=== PATIENT | male | born 1955 | race Caucasian/White ===

== ENCOUNTER → 2017-04-26 14:36 | Outpatient (CLI) | payer BC, SELFPAY ==
[2017-04-26 16:39] LABS: Anion Gap 8 (5-15); BUN 16 mg/dL (7-18); BUN/Creat Ratio 17.1 RATIO (10-20); Calcium,Total 8.9 mg/dL (8.5-10.1); Chloride 105 mmol/L (98-107); Cholesterol 183 mg/dL (200); Creatinine, Serum 0.94 mg/dL (0.70-1.30); EST Glomerular Filtration Rate 86 mL/min (>60); Est Glom Filt Rate - Afr Amer 104 mL/min (>60); Glucose 86 mg/dL (74-106); High Density Lipoprotein 52 mg/dL; PSA,Total - Annual Screen 6.43 ng/mL (0.00-4.00); Potassium 3.9 mmol/L (3.5-5.1); Sodium Level 141 mmol/L (136-145); Triglycerides 82 mg/dL; Very Low Density Lipoprotein 16 mg/dL (5-40)
[2017-04-27 09:36] LABS: Vitamin D,25 Hydroxy 25.9 ng/mL (29.95-100.01)
== END ==
PROVIDERS: Family Provider Family Medicine; PCP Family Medicine; Visit Provider Family Medicine
DX: Z00.00 Encounter for general adult medical examination without abnormal findings (principal)
CPT/HCPCS: 36415; 80048; 80061; 82306; 84153; G0103

== ENCOUNTER → 2017-07-11 12:15 | Outpatient (CLI) | payer BC, SELFPAY ==
--- NOTE | 2017-07-11 12:15 | DT_ITS ---
This patient was seen during an EMR downtime July 09, 2017 - July 16, 2017. This patient may have a combination of paper and electronic documentation or all paper documentation. All documentation is viewable within the e-chart portion of [facility] for each patient visit.
[2017-07-15 15:32] LABS: PSA,Total - Annual Screen 6.65 ng/mL (0.00-4.00)
[2017-07-16 12:43] LABS: Vitamin D,25 Hydroxy 31.3 ng/mL (29.95-100.01)
== END ==
PROVIDERS: Family Medicine; Family Provider Family Medicine; PCP Family Medicine; Visit Provider Family Medicine
DX: R97.20 Elevated prostate specific antigen [PSA] (principal); E55.9 Vitamin D deficiency, unspecified; Z12.5 Encounter for screening for malignant neoplasm of prostate
CPT/HCPCS: 36415; 82306; 84153; G0103

== ENCOUNTER → 2017-09-24 16:23 | Outpatient (CLI) | payer BC, SELFPAY ==
--- NOTE | 2017-09-24 08:00 | PROSBIL_PTH ---
PATIENT: GILA DOSHI LOC: [facility] U#:[id number] AGE/SX: 69/M ROOM: RE09/24/[address]: Dr. Kade Mills MD : 1955 BED: DIS: SPEC #: [id number] RECD: 09/24/17 10:35 STATUS: GREGORIO HARJINDER #: [id number] ERICKA: 09/24/17 08:[address]: Kade Mills DEPT: SURGICAL PATHOLOGY RECD BY: Trent Mobley ENTERED: 09/25/17 10:36 SP TYPE: PROST BX NGOZI DR: Dr. Marquis Boyle MD Tissues: A - PROSTATE RIGHT B - PROSTATE RIGHT C - PROSTATE RIGHT D - PROSTATE LEFT E - PROSTATE LEFT F - PROSTATE LEFT Procedures: PROSTATE BX HEADER OPERATION: Prostate biopsy PRE-OP DIAGNOSIS: R97.20 TISSUE SUBMITTED: A - Right apex, B - Right mid, C - Right base, D - Left apex, E - Left mid, F - Left base MICROSCOPIC DIAGNOSIS A. Right prostate, apex, core biopsy: Prostatic adenocarcinoma: [place] grade: 4+3=7 Number of cores involved: 1 out of 1 Proportion of tissue involved: ~60% Perineural invasion: Present. Greatest tumor length: 0.8 cm Focal high-grade prostatic intraepithelial neoplasia (HGPIN). B. Right prostate, mid, core biopsy: Prostatic adenocarcinoma: [place] grade: 3+4=7 Number of cores involved: 2 out of 2 Proportion of tissue involved: 80% Perineural invasion: Present. Greatest tumor length: 0.9 cm Focal high-grade prostatic intraepithelial neoplasia (HGPIN). C. Right prostate, base, core biopsy: Prostatic adenocarcinoma: Masood grade: 4+5=9 Number of cores involved: 2 out of 2 Proportion of tissue involved: 100% Perineural invasion: Present. Greatest tumor length: 1.3 cm Focal high-grade prostatic intraepithelial neoplasia (HGPIN). D. Left prostate, apex, core biopsy: Prostatic tissue, negative for malignancy. E. Left prostate, mid, core biopsy: Prostatic adenocarcinoma: [place] grade: 4+3=7 Number of cores involved: 2 out of 2 Proportion of tissue involved: ~80% Perineural invasion: Present, frequent. Greatest tumor length: 0.8 cm Focal high-grade prostatic intraepithelial neoplasia (HGPIN). F. Left prostate, base, core biopsy: Prostatic adenocarcinoma: [place] grade: 4+3=7 Number of cores involved: 2 out of 2 Proportion of tissue involved: ~50% Perineural invasion: Present. Greatest tumor length: 0.8 cm Focal high-grade prostatic intraepithelial neoplasia (HGPIN). Chronic inflammation. SJ:mino 09/26/17 COMMENT Case has been reviewed in consultation with Dr. Perez who concurs with the above diagnosis. IDC:AM MICROSCOPIC DESCRIPTION Slides are reviewed. GROSS DESCRIPTION A - Received is one container designated prostate, right apex. The specimen consists of one elongated fragment of light munguia-white soft tissue measuring 1.7 cm in length and 0.1 cm in diameter. The specimen is totally submitted in one cassette. B - Received is one container designated prostate, right mid. The specimen consists of two elongated fragments of light munguia-white soft tissue each measuring 1.3 cm in length and 0.1 cm in diameter. The specimen is totally submitted in one cassette. C - Received is one container designated prostate, right base. The specimen consists of two elongated fragments of light munguia-white soft tissue each measuring 1.5 cm in length and 0.1 cm in diameter. The specimen is totally submitted in one cassette. D - Received is one container designated prostate, left apex. The specimen consists of one elongated fragment of light munguia-white soft tissue measuring 1.3 cm in length and <0.1 cm in diameter. The specimen is totally submitted in one cassette. E - Received is one container designated prostate, left mid. The specimen consists of two elongated fragments of light munguia-white soft tissue measuring 1 and 1.3 cm in length and 0.1 cm in diameter. The specimen is totally submitted in one cassette. F - Received is one container designated prostate, left base. The specimen consists of two elongated fragments of light munguia-white soft tissue measuring 1 and 1.4 cm in length and 0.1 cm in diameter. The specimen is totally submitted in one cassette. / SJ:rg 09/25/17 TC:0 [facility]: [id number] [phone]
== END ==
PROVIDERS: Family Provider Family Medicine; PCP Family Medicine; Visit Provider Urology
DX: C61 Malignant neoplasm of prostate (principal); N42.31 Prostatic intraepithelial neoplasia
CPT/HCPCS: 88305; G0416

== ENCOUNTER → 2017-10-03 08:39 | Outpatient (CLI) | payer BC, SELFPAY | PROVIDERS: Family Provider Family Medicine; PCP Family Medicine; Visit Provider Urology | DX: C61 Malignant neoplasm of prostate (principal) | CPT/HCPCS: 78306 ==

== ENCOUNTER → 2017-10-05 06:36 | Outpatient (CLI) | payer BC, SELFPAY ==
[2017-10-05 06:51] LABS: EGFR FINGERSTICK > 60.0000 mL/min (>60)
== END ==
PROVIDERS: Family Provider Family Medicine; PCP Family Medicine; Visit Provider Urology
DX: C61 Malignant neoplasm of prostate (principal)
CPT/HCPCS: 74177; Q9967

== ENCOUNTER → 2017-11-19 10:20 | Outpatient (CLI) | payer BC, SELFPAY ==
--- NOTE | 2017-11-19 10:23 | ECHOD_ITS ---
Reason For Study: ARRHYTHMIA Procedure This was a 2D Doppler, Color Flow transthoracic echocardiogram. Exam performed in department. Left Ventricle Normal LV size. Mild concentric left ventricular hypertrophy. Left ventricular systolic function is normal. The estimated ejection fraction is 55 %. Normal diastology for age. No regional wall motion abnormalities noted. Right Ventricle Normal RV size. Normal systolic function. Atria The left atrium is mildly enlarged. Normal right atrium. Mitral Valve Normal mitral valve. Mild (1+) eccentric mitral valve insufficiency. Tricuspid Valve Normal tricuspid valve. Mild (1+) tricuspid valve insufficiency. Pulmonary artery systolic pressure is 23 mmHg. Aortic Valve Normal aortic valve. Trisinus/trileaflet aortic valve. Pulmonic Valve Normal pulmonic valve. Great Vessels Mildly dilated aortic root. The pulmonary artery is normal size. Normal inferior vena cava. Pericardium/Pleural No pericardial effusion. MMode/2D Measurements & Calculations LVIDd: 5.3 cm IVSd: 1.2 cm Ao root diam: 3.8 cm LVIDs: 3.2 cm LVPWd: 1.2 cm LA dimension: 3.3 cm RVDd: 3.4 cm FS: 38.5 % LAV(MOD-bp): 68.3 ml LA A4 area: 20.4 cm2 RA A4 area: 15.9 cm2 LAV(MOD-bp) Indexed: 31.7 ml/m2 LAV(MOD-sp2): 66.4 ml LAV(MOD-sp4): 66.4 ml Doppler Measurements & Calculations MV E max moisés: 58.8 cm/sec Lat Peak E' Moisés: 8.4 cm/sec Med Peak E' Moisés: 7.0 cm/sec MV A max moisés: 49.7 cm/sec E/E' lat: 7.0 E/E' med: 8.4 MV E/A: 1.2 Ao V2 max: 113.1 cm/sec LV V1 max: 97.2 cm/sec PA V2 max: 89.4 cm/sec Ao max P.1 mmHg LV V1 max P.8 mmHg TR max moisés: 218.7 cm/sec TR max P.2 mmHg Interpretation Summary Normal LV size. Mild concentric left ventricular hypertrophy. Left ventricular systolic function is normal. The estimated ejection fraction is 55 %. Normal diastology for age. Mild (1+) tricuspid valve insufficiency. Ordering Physician: Oskar Ellison Referring Physician: Marquis Boyle Performed By: Jia Muhammad, ZAYRA, RVT
== END ==
PROVIDERS: Family Provider Family Medicine; PCP Family Medicine; Referring Provider Internal Medicine Cardiovascular Disease; Visit Provider Internal Medicine Cardiovascular Disease
DX: Z01.810 Encounter for preprocedural cardiovascular examination (principal)
CPT/HCPCS: 93306

== ENCOUNTER 2017-11-21 08:03 | Observation (INO) | payer BC, SELFPAY ==
--- NOTE | 2017-11-13 10:30 | RAD_ITS ---
STUDY: X-RAY - ABDOMEN/PELVIS REASON FOR EXAM: Male, 62 years old. Preoperative evaluation for prostate surgery. TECHNIQUE: Single AP view of the abdomen / pelvis. COMPARISON: None. FINDINGS: Normal visualized lung bases. There is an unremarkable bowel gas pattern. There is no demonstrated free abdominal air. The visualized liver, spleen and kidneys are grossly normal in size and morphology. There are phleboliths in pelvis. Normal visualized osseous structures. RAD/Abdomen Single View IMPRESSION: No acute pathology. Electronically Signed: Lewis Tony MD at 11:22 EDT , Service support ,
[2017-11-13 11:32] VITALS: BP 139/89; PULSE 47; RESP 16; TEMP 36.5; O2SAT 99; BMI 24.7
--- NOTE | 2017-11-13 11:37 | SDCEKG_ITS ---
Test Reason : Blood Pressure : / mmHG Vent. Rate : 050 BPM Atrial Rate : 050 BPM P-R Int : 184 ms QRS Dur : 094 ms QT Int : 452 ms P-R-T Axes : -17 012 044 degrees QTc Int : 412 ms Sinus bradycardia Otherwise normal ECG Confirmed by FERNANDO ETIENNE, JORGE ([id number]), editor book ANAIS INGRAM ([id number]) on 11/14/2017 3:33:30 PM Referred By: Kade Mills Confirmed By:JORGE KING MD
[2017-11-13 12:12] LABS: Hematocrit 41.8 % (40-54); Hemoglobin 13.3 g/dl (13.0-16.5); Mean Corp Hgb Conc 31.8 g/gl (32-36); Mean Corpuscular Hgb 28.2 pg (27.0-32.0); Mean Corpuscular Volume 88.6 fL (80-94); Platelet Count 176 K/mm3 (150-450); RBC Distribution Width CV 14.1 % (11.6-14.6); RBC Distribution Width SD 46.1 fl (35.1-43.9); Red Blood Count 4.72 M/mm3 (4.6-6.2); Scan Indicated on CBC? Y/N NO; White Blood Count 6.4 K/mm3 (4.4-11.0)
[2017-11-21] VITALS (12 sets, daily range): BP systolic 119–134; BP diastolic 75–92; PULSE 58–70; RESP 16–106; TEMP 36–36.8; O2SAT 96–100; BMI 24.7; BMI 26.7
--- NOTE | 2017-11-21 | PROST_PTH ---
PATIENT: GILA DOSHI LOC: [facility] U#:[id number] AGE/SX: 62/M ROOM: [facility] RE11/21/[address]: Dr. Kade Mills MD : 1955 BED: 1 DIS: 11/22/2017 SPEC #: [id number] RECD: 11/21/17 14:02 STATUS: GREGORIO RERaquel #: [id number] ERICKA: 11/21/17 00:[address]: Kade Mills DEPT: SURGICAL PATHOLOGY RECD BY: Tate Gutierrez ENTERED: 11/21/17 14:03 SP TYPE: PROSTATE OTHR DR: Dr. Marquis Boyle MD Tissues: A - Prostate, NOS B - Lymph node of pelvis, NOS C - Lymph node of pelvis, NOS D - Adipose tissue Procedures: Surgery Specimen Level IV Surgery Specimen Level V Surgery Specimen Level HEADER OPERATION: Laparoscopic robotic radical prostatectomy PRE-OP DIAGNOSIS: Prostate cancer, elevated PSA TISSUE SUBMITTED: A - Prostate, B - Left pelvic lymph node, C - Right pelvic lymph node, D - Fat over prostate MICROSCOPIC DIAGNOSIS A. Prostate, radical prostatectomy: Prostatic adenocarcinoma. See cancer summary below. B. Left pelvic lymph node, biopsy: Three out of three lymph nodes, negative for metastatic carcinoma. C. Right pelvic lymph node, biopsy: One out of one lymph node, negative for metastatic carcinoma. D. Fat over prostate: Negative for carcinoma. SJ:mino 11/27/17 PROSTATE CANCER (RADICAL) SUMMARY: Procedure - radical prostatectomy Prostate size - 4.5 cm craniocaudally, 4.5 cm transversely and 3.5 cm anterior-posteriorly. Prostate weight - 43.5 gm Lymph node sampling - pelvic lymph node dissection Histologic type - adenocarcinoma (acinar, not otherwise specified) Histologic grade (Masood Pattern): Primary pattern - 4 Secondary pattern - 3 Tertiary pattern - 5 Total [place] score - 7 Tumor Quantitation: Proportion (%) of prostate involved by tumor - ~50-60% Tumor size - see comment Extraprostatic extension - present, focal Right and left lobe, lateral and posterior surface. Seminal vesicle invasion - not identified Margins - Margins uninvolved by invasive carcinoma. Treatment effect on carcinoma - no known presurgical therapy. Lymph-Vascular invasion - not identified Perineural invasion - present and frequent Regional lymph nodes - no regional lymph node metastasis. Number examined - 4 Number involved - 0 Distant metastasis - not applicable Additional pathologic findings - Focal high-grade prostatic intraepithelial neoplasia (HGPIN). Benign glandular hyperplasia. Chronic inflammation. Ancillary studies - not performed PATHOLOGIC STAGE: pT3a Nx Mx The above summary is in compliance with [employer] (CAP) Cancer Protocols Checklist and [place] Joint Committee on Cancer (AJCC), Staging Manual, 8th Ed. COMMENT The tumor in the right lobe measures approximately 3 x 2.0 x 1.5 cm (measured microscopically) and involves apical to basal portion of the prostate and present in slides #.5, 6, 8, 10, 12, 14, 16 & 18. The tumor in the left lobe measures approximately 3 x 1.8 x 1.0 cm (measured microscopically) and involves apical to basal portion of the prostate and present in slides #.5, 6, 7, 9, 11, 13 15 & 17. Please make reference to previous specimen ([id number]) right prostate, apex, mid and base and left prostate, mid and base with diagnosis of adenocarcinoma. Case has been reviewed in consultation with Dr. Perez who concurs with the above diagnosis. IDC:AM MICROSCOPIC DESCRIPTION Slides are reviewed. GROSS DESCRIPTION A - Received in fixative is one container labeled with the patient's name and designated prostate. The specimen consists of a radical prostatectomy specimen consisting of prostate and bilateral seminal vesicles and vas deferens weighing 43.5 gm. The prostate measures 4.5 cm craniocaudally, 4.5 cm transversely, 3.5 cm anterior-posteriorly. The right seminal vesicle measures 3 x 1.5 x 0.7 cm and right vas deferens measures 3.5 cm in length and 0.5 cm in diameter. The left seminal vesicle measures 3 x 1.5 x 0.5 cm and left vas deferens measures 3 cm in length and 0.5 cm in diameter. The prostate is inked as follows: anterior - yellow, posterior - black, right lateral surface - blue, left lateral surface - green. The seminal vesicle and vas deferens are inked as follows: posterior surface right and left seminal vesicle and vas deferens - black, anterior surface right seminal vesicle and vas deferens - blue, anterior surface left seminal vesicle and vas deferens - green. Sections do not reveal any well-defined mass lesions. Marketing Operations Intern sections are submitted in 20 cassettes as follows: 1 - right seminal vesicle and vas deferens, 2 - left seminal vesicle and vas deferens, 3 - apical, urethral margin, enface, 4 - bladder base margin, enface, 5-8 - apical portion prostate, 9-14 - middle portion prostate, 15-20 - basal portion prostate (19 & 20 contain the most basal portion of the prostate). About 90% of the prostate is submitted. / : 11/22/17 B - Received in fixative is one container labeled with the patient's name and designated left pelvic lymph node. The specimen consists of a piece of munguia-yellow adipose tissue measuring 3.5 x 1.8 x 1 cm. One lymph node is identified measuring 3 cm in greatest dimension. The entire specimen is submitted in three cassettes as follows: 1 & 2 - one serially sectioned lymph node, 3 - rest of the lymph node. The specimen will be submitted after additional fixation. / : 11/21/17 C - Received in fixative is one container labeled with the patient's name and designated right pelvic lymph node. The specimen consists of two pieces of yellow adipose tissue measuring 5.5 x 2.5 x 1 cm and 2 x 1 x 0.2 cm. One lymph node is identified measuring 5 cm in greatest dimension. The entire specimen is submitted in four cassettes as follows: 1-3 - one serially sectioned lymph node, 4 - rest of the lymph node. Sections will be submitted after additional fixation. / : 11/21/17 D - Received in fixative is one container labeled with the patient's name and designated fat over prostate. The specimen consists of an irregular piece of yellow adipose tissue measuring 4 x 1.5 x 0.3 cm. No lesion is identified. The entire specimen is submitted in one cassette. Sections will be submitted after additional fixation. / : 11/21/17 TC:0 CPT: 60107, 92725 x2, [id number]
[2017-11-21] MEDS: Cefazolin 2 GM in 0.9% Normal Saline 100 ML IV (07:28)
--- NOTE | 2017-11-21 07:31 | DCINST_ITS ---
Discharge Diet: Light diet - advance as tolerated, Soft diet Discharge Activity: May not drive while taking narcotic pain medications., May Shower May shower in (days): 1 Lifting Restrictions: no lifting over 10 lbs Call your doctor if your incision/area has: Continuous Slow Oozing, Sudden Increased Bleeding, Increased Pain/ Swelling, Increased Redness, Foul Smelling Discharge, Swelling at the incision site Call your doctor if you observe: Fever of 101 or Higher, Inability to have a bowel movement, Shortness of breath, Chest pain, Calf discomfort, Uncontrolled pain Suture Line Care: Avoid Pulling/Pushing, Avoid Pinching/Bending Catheter: Mcneil to leg bag, Mcneil to large bag Drain: [place] Instructions: Discharge Instructions for Radical Prostatectomy Allergies/Adverse Reactions: Allergies No Known Allergies Allergy (Unverified 11/14/17 14:37) Medications to take at Discharge Famotidine [Pepcid] 20 mg PO PRN PRN 11/13/17 ranitidine 150 mg tablet 150 mg PO DAILY 11/14/17 Ciprofloxacin [Cipro] 500 mg PO BID #20 tab 11/21/17 Docusate Sodium [Colace] 100 mg PO BID #20 cap 11/21/17 Hydrocodone/Acetaminophen [[place] 5-325 Tablet] 1 ea PO Q4H PRN PRN 7 Days #10 tab 11/21/17 The following prescriptions were given: Hydrocodone/Acetaminophen [[place] 5-325 Tablet] 1 ea PO Q4H PRN PRN 7 Days #10 tab PRN Reason: Pain Ciprofloxacin [Cipro] 500 mg PO BID #20 tab Docusate Sodium [Colace] 100 mg PO BID #20 cap Primary Care Physician: Marquis Boyle MD [Primary Care Provider] - Test Results: Test results from this visit will be discussed in further detail at your follow- up appointment, if applicable. Please Follow Up With: Kade Mills MD When: November 29 at 1:30 pm Proposed Discharge Date: 11/22/17
--- NOTE | 2017-11-21 11:01 | PCM.OPRPT ---
Report of Operation Date of Procedure: 11/21/17 Pre-Operative Diagnosis: Prostate cancer Post-Operative Diagnosis: Same Surgery/Procedure Performed:: Laparoscopic robotic assisted radical prostatectomy, bilateral lymph node dissection, suture suspension of the urethra to prevent incontinence. EMG electrical stimulation of the pelvic nerves and urethra. Description of Surgical Findings:: 62-year-old male with a history of prostate cancer is a high-grade poorly differentiated prostate cancer involving the right side of the prostate with a firm nodule. Today we plan to take the patient to surgery for laparoscopic robotic assisted radical prostatectomy and plan to do a left nerve sparing possible right partial nerve sparing. 62-year-old male taken back to the operating room after smooth induction of general anesthesia he was placed supine on the table, he was placed supine on the table made sure the pressure points were padded, the legs were in stirrups, the abdomen was shaved prepped and draped in usual sterile fashion, I then used a Veress needle and went supraumbilically into the peritoneal cavity and insufflated the peritoneal cavity with CO2 gas and then placed my camera trocar and then placed my right arm trocar left arm trocar and the second left arm trocar, we placed our air seal port and our client account assistant suction port, I then went into the abdomen we inspected the abdomen we then identified the colon and as was coming out of the pelvis we then identified the vas deferens opened up the vas deferens all along the course of the pelvis down to the prostate dissected the right vas deferens right seminal vesicle dissected out the left breast left vas deferens and left seminal vesicle this was all done put posterior to the bladder below the prostate open up the space below the prostate and the rectum stain above the do not be his fascia and dissected all the way to the apex here I then pulled out the pelvis we then docked the dropped the bladder down open up the space of Retzius the bladder was then placed on traction we then went to the right pelvic lymph nodes and dissected out the obturator lymph nodes in the right side these were done with meticulously with clips taken all the lymph node tissue from in front of the vein the obturator nerve and the pelvic sidewall once this was done then with the left side again took out the lymph node tissue behind the left vein this is the left iliac vein pelvic sidewall and milling planer operator nerve little bit of bleeding was encountered in dissecting out the left pelvic lymph nodes but is very close to the milling planer operator nerve so then using cautery and eventually this stopped on its own with observation I then went up to the prostate prostate was put on traction we cleaned off the fat of the topical prostate this was sent off as a specimen, fat over prostate. We then incised the endopelvic fascia in the right side and incised in the pelvic Fascia in the left side dissected up to the to the apex until we encountered the dorsal vein complex then the dorsal vein complex was sutured tight shot with a stitch once this was accomplished then went back to the junction between the bladder and the prostate dissected between the bladder and prostate all the way down to the urethra encountered the catheter pulled the catheter up and then dissected between the posterior aspect of the prostate and bladder until I encountered the seminal vesicle and vas deferens. We then went to the left side first clipped the pedicles and the prostate in the left side and then teased off the neurovascular bundle off the posterior aspect of the prostate all the way to the apex then went to the right side of the pedicles in the right side but to the right side at the palpable hard nodule did not do a true nerve sparing but partial nerve sparing in the on the right side taken the right side neurovascular bundle with the prostate and not saving the but a partial nerve sparing during the bladder neck dissection I dropped down the EMG electrodes we tested the pelvic lymph nerves on the right side we had good action potential on the right side we tested the pelvic nerves in the left side good action potential in the left side during the dissection these action potentials were checked periodically to make sure I was not injuring the pelvic nerves and these were spared entirely with the dissection we then transected through the dorsal vein complex and there was no bleeding and we transected through the urethra major we could save a nice stump of the urethra but also made sure not to get too close to the apex of the prostate avoided avoid a margin. I then completed the suture suspension of the urethra we suspended the suture from the bladder neck to the urethra running a continuous fashion over a catheter this is an anti-incontinence procedure once this was completed then we checked the pelvic nerves to the urethra this was intact we put a catheter in the bladder but the bladder and irrigation there was no leakage from the anastomosis we then extracted the prostate from the umbilical site we closed all this all the closed the Kirby Soto stitch 1012 Kirby Soto stitch. And then we extracted all the ports we closed the incisions with subcuticular stitches and the patient anesthetic was reversed taken at the PACU good condition that should end dictation Type of Anesthesia:: General Specimen's removed: prostate - Admit VTE Documentation VTE Present on Admission: No VTE Mechan Device Prophylaxis: SCD's VTE Pharm Prophylaxis ordered?: No Reason prophylaxis not ordered:: Treatment Not Indicated
[2017-11-21] MEDS: Ketorolac 15 MG/ML Vial IV ×2 (13:29→21:37)
[2017-11-21] MEDS: Ciprofloxacin 500 MG Tablet PO ×2 (13:55→21:37)
[2017-11-21] MEDS: Docusate Sodium 100 MG Capsule 200 MG PO ×2 (13:55→21:37)
[2017-11-21 16:18] LABS: Anion Gap 7 (5-15); BUN 13 mg/dL (7-18); Calcium,Total 8.2 mg/dL (8.5-10.1); Chloride 102 mmol/L (98-107); Creatinine, Serum 0.86 mg/dL (0.70-1.30); EST Glomerular Filtration Rate 94 mL/min (>60); Est Glom Filt Rate - Afr Amer 114 mL/min (>60); Estimated Creatinine Clearance 98.07 ml/min; Glucose 130 mg/dL (74-106); Potassium 3.7 mmol/L (3.5-5.1); Sodium Level 135 mmol/L (136-145)
[2017-11-21 16:19] LABS: Hematocrit 38.2 % (40-54); Hemoglobin 12.4 g/dl (13.0-16.5); Mean Corp Hgb Conc 32.5 g/gl (32-36); Mean Corpuscular Hgb 28.3 pg (27.0-32.0); Mean Corpuscular Volume 87.2 fL (80-94); Mean Platelet Vol. 11.5 fl (6.2-12.0); Platelet Count 151 K/mm3 (150-450); RBC Distribution Width SD 45.1 fl (35.1-43.9); Red Blood Count 4.38 M/mm3 (4.6-6.2); White Blood Count 12.8 K/mm3 (4.4-11.0)
[2017-11-21 16:21] LABS: Scan Indicated on CBC? Y/N NO
[2017-11-21] MEDS: Lactated Ringers 1,000 ML 125 ML IV (16:21)
[2017-11-21] MEDS: Acetaminophen 325 MG Tablet PO (18:32)
[2017-11-22] MEDS: Lactated Ringers 1,000 ML 125 ML IV (00:27)
[2017-11-22 03:13] VITALS: BP 108/60; PULSE 69; RESP 18; TEMP 36.3; O2SAT 98
[2017-11-22] MEDS: Ketorolac 15 MG/ML Vial IV ×2 (03:40→10:13)
[2017-11-22 06:32] LABS: Hematocrit 33.7 % (40-54); Mean Corp Hgb Conc 32.6 g/gl (32-36); Mean Corpuscular Hgb 28.4 pg (27.0-32.0); Mean Corpuscular Volume 86.9 fL (80-94); Platelet Count 143 K/mm3 (150-450); RBC Distribution Width CV 14.1 % (11.6-14.6); RBC Distribution Width SD 45.1 fl (35.1-43.9); Red Blood Count 3.88 M/mm3 (4.6-6.2)
[2017-11-22 06:37] LABS: Scan Indicated on CBC? Y/N NO
[2017-11-22 06:53] LABS: Anion Gap 7 (5-15); BUN 11 mg/dL (7-18); BUN/Creat Ratio 12.5 RATIO (10-20); Calcium,Total 7.8 mg/dL (8.5-10.1); Chloride 106 mmol/L (98-107); Creatinine, Serum 0.88 mg/dL (0.70-1.30); EST Glomerular Filtration Rate 92 mL/min (>60); Est Glom Filt Rate - Afr Amer 112 mL/min (>60); Estimated Creatinine Clearance 95.84 ml/min; Glucose 102 mg/dL (74-106); Potassium 3.8 mmol/L (3.5-5.1); Sodium Level 139 mmol/L (136-145)
[2017-11-22 07:46] VITALS: BP 106/70; PULSE 60; RESP 18; TEMP 36.6; O2SAT 100
[2017-11-22] MEDS: Docusate Sodium 100 MG Capsule 200 MG PO (07:51)
[2017-11-22] MEDS: Ciprofloxacin 500 MG Tablet PO (07:51)
[2017-11-22] MEDS: 0.9% NaCl Peripheral Flush Adult/Peds IV (10:13)
[2017-11-22 11:30] VITALS: O2SAT 98
[2017-11-22 13:21] VITALS: BP 99/57; PULSE 75; RESP 18; TEMP 36.8; O2SAT 99
== END 2017-11-22 13:21 | disposition home or self-care (01) ==
LOC: SDC 08:03 → MS2 13:34
PROVIDERS: Anesthesiology; Admitting Provider Urology; Family Provider Family Medicine; PCP Family Medicine; Referring Provider Urology; Visit Provider Urology
PROC: 0VT04ZZ Resection of Prostate, Percutaneous Endoscopic Approach (ICD-10-PCS; CPT 55866; principal; 2017-11-21 07:10)
DX: C61 Malignant neoplasm of prostate (principal); F32.9 Major depressive disorder, single episode, unspecified; K21.9 Gastro-esophageal reflux disease without esophagitis; Z79.899 Other long term (current) drug therapy; Z79.82 Long term (current) use of aspirin
CPT/HCPCS: 00840; 55866; S2900; 36415; 74018; 80048; 85027; 86850; 86900; 88304; 88305; 88307; 88309; 93005; 94762; 96361; 96374; 96376; 99218; J7120; A4216; G0378; G0379; J2405

== ENCOUNTER → 2018-02-26 09:23 | Outpatient (CLI) | payer BC, SELFPAY ==
[2017-11-21 12:59] VITALS: BMI 26.7
[2018-02-26 10:49] LABS: PSA,Total- Diagnostic < 0.01 ng/mL (0.0-4.0)
--- OUTSIDE RECORDS SUMMARY | 2018-04-30 10:40 | XMS RPT_ITS ---
:1955 Author Organization OHIP Support Name Relationship Address Phone [employer] Unavailable [address] + [place] [address] YANI REYES Unavailable [address] + [place] [address] AZAM DOSHI Unavailable Unavailable + [place] [address] [employer] Unavailable [address] + [place] [address] YANI REYES Unavailable [address] + [place] [address] AZAM DOSHI Unavailable Unavailable + [place] [address] [employer] Unavailable [address] + [place] [address] YANI REYES Unavailable [address] + [place] [address] [employer] Unavailable [address] + [place] [address] YANI REYES Unavailable [address] + [place] [address] [employer] Unavailable [address] + [place] [address] YANI REYES Unavailable [address] + [place] [address] [employer] Unavailable [address] + [place] [address] YANI REYES Unavailable [address] + [place] [address] [employer] Unavailable [address] + [place] [address] YANI REYES Unavailable [address] + [place] [address] AZAM DOSHI Unavailable Unavailable + [place] [address] [employer] Unavailable [address] + [place] [address] YANI REYES Unavailable [address] + [place] [address] [employer] Unavailable [address] + [place] [address] YANI REYES Unavailable [address] + [place] [address] [employer] Unavailable [address] + [place] [address] YANI REYES Unavailable [address] + [place] [address] [employer] Unavailable [address] + [place] [address] YANI REYES Unavailable CECIL + [place] [address] [employer] Unavailable [address] + [place] [address] YANI REYES Unavailable CECIL + [place] [address] [employer] Unavailable [address] + [place] [address] YANI REYES Unavailable CECIL + [place] [address] Care Team Providers Name Role Phone Kade Mills Attending Unavailable Kade Mills Referring Unavailable Tamar, Marquis Primary Care Unavailable Boyle, Marquis Attending Unavailable Boyle, Marquis Primary Care Unavailable Gila Ingram Attending Unavailable Marquis Boyle Primary Care Unavailable LinaKade braxton Attending Unavailable Tamar, Marquis Primary Care Unavailable Kade Mills Referring Unavailable Kade Mills Attending Unavailable Kade Mlils Referring Unavailable Boyle, Marquis Primary Care Unavailable Kade Mills Attending Unavailable Kade Mills Referring Unavailable Boyle, Marquis Primary Care Unavailable Kade Mills Attending Unavailable Kade Mills Referring Unavailable Boyle, Marquis Primary Care Unavailable Kade Mills Admitting Unavailable LinaKade braxton Attending Unavailable LinaKade braxtonFadi Referring Unavailable Boyle, Marquis Primary Care Unavailable Sue Ontiveros Attending Unavailable Scot, Oskar Attending Unavailable Boyle, Marquis Referring Unavailable Scot, Oskar Attending Unavailable Scot, Oskar Referring Unavailable Boyle, Marquis Primary Care Unavailable Scot, Oskar Attending Unavailable Scot, Arnett Referring Unavailable Boyle, Marquis Primary Care Unavailable Scot, Arnett Consulting Unavailable Marquis King Attending Unavailable Lyndon Snider Referring Unavailable PROBLEMS PROBLEMS DATE TYPE CONDITION / CODE ATTENDING STATUS SOURCE 11/22/2017 Unknown C61 - Malignant Kade Mills Active [place] neoplasm of prostate [facility] / C61(ICD-10) Hospital Repository 11/19/2017 Unknown Z01.810 - Encounter Oskar Ellison Active [place] for preprocedural [facility] examination / Repository Z01.810(ICD-10) 11/14/2017 Unknown R07.89 - Other chest Oskar Ellison Active [facility] pain / Community R07.89(ICD-10) Hospital Repository 12/11/2017 Unknown R00.1 - Bradycardia, Marquis King Active [facility] unspecified / Community R00.1(ICD-10) Hospital Repository 11/12/2017 Unknown N20.0 - Calculus of Kade Mills Active [place] kidney / [facility] N20.0(ICD-10) Hospital Repository 08/02/2017 Unknown R97.20 - Elevated Gila Ingram Active [facility] prostate specific Community antigen [PSA] / Hospital R97.20(ICD-10) Repository 04/26/2017 Unknown Z00.00 - Encounter Marquis Boyle Active [place] for general adult [facility] medical examination Hospital without abnormal Repository findings / Z00.00(ICD-10) PROCEDURES PROCEDURES No Procedure Records FoundRESULTS RESULTS PSA,TOTAL- DIAGNOSTIC Collected: 02/26/2018 Status: F Source: [facility] TYPE CODE TESTS RESULT OUT OF RANGE REFERENCE UNITS LAB L501.9940 0.0-4.0 ng/mL PSA, Normal DIAGNOSTIC < 0.01 Result Comment: This test was performed using the TPSA assay method for the [employer] system. Values obtained with different assay methods cannot be used interchangably. When changing PSA assays in the course of monitoring a patient, additional sequential testing should be carried out to confirm baseline values. Performed By: #### L501.9940 #### [facility] [address] [place], [place], [address] CBC-COMPLETE BLOOD CNT Collected: 11/22/2017 Status: F Source: [place] NO DIFF 5:42 AM [facility] REPOSITORY TYPE CODE TESTS RESULT OUT OF RANGE REFERENCE UNITS LAB L100.1000 4.4-11.0 K/mm3 Normal WBC 10.0 LAB L100.1200 4.6-6.2 M/mm3 Low RBC 3.88 LAB L100.1300 13.0-16.5 g/dl Low HGB 11.0 LAB L100.1400 40-54 % Low HCT 33.7 LAB L100.1500 80-94 fL Normal MCV 86.9 LAB L100.1600 27.0-32.0 pg Normal MCH 28.4 LAB L100.1700 32-36 g/gl Normal MCHC 32.6 LAB L100.1810 11.6-14.6 % Normal RDW CV 14.1 LAB L100.1820 35.1-43.9 fl High RDW SD 45.1 LAB L100.1900 150-450 K/mm3 Low PLT 143 LAB L100.2000 6.2-12.0 fl Normal MPV 12.0 Performed By: #### L100.0500 #### [facility] [address] [place], [place], [address] BASIC METABOLIC Collected: 11/22/2017 Status: F Source: [place] PROFILE (BMP) 5:42 AM [facility] REPOSITORY TYPE CODE TESTS RESULT OUT OF RANGE REFERENCE UNITS LAB L501.0100 74-106 mg/dL Normal GLU 102 Result Comment: Fasting Glucose result from 100 to 125 mg/dL suggests IMPAIRED HOMEOSTASIS per A.D.A. criteria. Please note revised GLUCOSE reference range effective 2017. LAB L501.1000 7-18 mg/dL Normal BUN 11 LAB L501.1100 0.70-1.30 mg/dL Normal CREAT,SERUM 0.88 Result Comment: The validity of the calculated GFR AND GFRAA in patients over 70 years has not been determined. Clinical correlation is essential. LAB L501.1110 >60 mL/min Normal EST GFR 92 Result Comment: Non- GFR Calc LAB L501.1115 >60 mL/min Normal EST GFR - AA 112 Result Comment: GFR Calc LAB L501.1255 ml/min Normal Estimated CRCL 95.84 LAB L501.1300 10-20 RATIO Normal BUN/CRE 12.5 LAB L501.2200 8.5-10 mg/dL Low .1 CA 7.8 LAB L501.5300 136-14 mmol/L Normal 5 NA 139 LAB L501.5600 3.5-5. mmol/L Normal 1 K 3.8 LAB L501.5900 98-107 mmol/L Normal CL 106 LAB L501.6100 21.0-3 mmol/L Normal 2.0 CO2 26.0 LAB L501.6200 5-15 Normal GAP 7 Performed By: #### L500.2500 #### [facility] [address] [place], [place], [address] BASIC METABOLIC Collected: 11/21/2017 Status: F Source: [place] PROFILE (BMP) 4:00 PM [facility] REPOSITORY Order Comment: Comments: To be done in PACU TYPE CODE TESTS RESULT OUT OF RANGE REFERENCE UNITS LAB L501.0100 74-106 mg/dL High GLU 130 Result Comment: Fasting Glucose result greater than or equal to 126 mg/dL suggests DIABETES MELLITUS per A.D.A. criteria. Please note revised GLUCOSE reference range effective 2017. LAB L501.1000 7-18 mg/dL Normal BUN 13 LAB L501.1100 0.70-1.30 mg/dL Normal CREAT,SERUM 0.86 Result Comment: The validity of the calculated GFR AND GFRAA in patients over 70 years has not been determined. Clinical correlation is essential. LAB L501.1110 >60 mL/min Normal EST GFR 94 Result Comment: Non- GFR Calc LAB L501.1115 >60 mL/min Normal EST GFR - AA 114 Result Comment: GFR Calc LAB L501.1255 ml/min Normal Estimated CRCL 98.07 LAB L501.1300 10-20 RATIO Normal BUN/CRE 15.0 LAB L501.2200 8.5-10 mg/dL Low .1 CA 8.2 LAB L501.5300 136-14 mmol/L Low 5 NA 135 LAB L501.5600 3.5-5. mmol/L Normal 1 K 3.7 LAB L501.5900 98-107 mmol/L Normal CL 102 LAB L501.6100 21.0-3 mmol/L Normal 2.0 CO2 26.0 LAB L501.6200 5-15 Normal GAP 7 Performed By: #### L500.2500 #### [facility] [address] [place], [address] CBC-COMPLETE BLOOD CNT Collected: 11/21/2017 Status: F Source: [place] NO DIFF 4:00 PM [facility] REPOSITORY Order Comment: Comments: To be done in PACU TYPE CODE TESTS RESULT OUT OF RANGE REFERENCE UNITS LAB L100.1000 4.4-11.0 K/mm3 High WBC 12.8 LAB L100.1200 4.6-6.2 M/mm3 Low RBC 4.38 LAB L100.1300 13.0-16.5 g/dl Low HGB 12.4 LAB L100.1400 40-54 % Low HCT 38.2 LAB L100.1500 80-94 fL Normal MCV 87.2 LAB L100.1600 27.0-32.0 pg Normal MCH 28.3 LAB L100.1700 32-36 g/gl Normal MCHC 32.5 LAB L100.1810 11.6-14.6 % Normal RDW CV 14.0 LAB L100.1820 35.1-43.9 fl High RDW SD 45.1 LAB L100.1900 150-450 K/mm3 Normal PLT 151 LAB L100.2000 6.2-12.0 fl Normal MPV 11.5 Performed By: #### L100.0500 #### [facility] [address] [place], [address] OPERATIVE REPORT Observed: 11/21/2017 Status: F Source: [place] 11:09 AM [facility] REPOSITORY [facility] Medical Records Department [address] [place] [address] Operative Report 11/21/17 1101 MR#: [id number] Acct: [id number] Name: GILA DOSHI Rep #: [id number] : 1955 62 From: Kade Mills MD PCP: Marquis Boyle MD Status: ADM IN Y Location: [facility] [id number] Report of Operation Date of Procedure: 11/21/17 Pre-Operative Diagnosis: Prostate cancer Post-Operative Diagnosis: Same Surgery/Procedure Performed:: Laparoscopic robotic assisted radical prostatectomy, bilateral lymph node dissection, suture suspension of the urethra to prevent incontinence. EMG electrical stimulation of the pelvic nerves and urethra. Description of Surgical Findings:: 62-year-old male with a history of prostate cancer is a high- grade poorly differentiated prostate cancer involving the right side of the prostate with a firm nodule. Today we plan to take the patient to surgery for laparoscopic robotic assisted radical prostatectomy and plan to do a left nerve sparing possible right partial nerve sparing. 62-year-old male taken back to the operating room after smooth induction of general anesthesia he was placed supine on the table, he was placed supine on the table made sure the pressure points were padded, the legs were in stirrups, the abdomen was shaved prepped and draped in usual sterile fashion, I then used a Veress needle and went supraumbilically into the peritoneal cavity and insufflated the peritoneal cavity with CO2 gas and then placed my camera trocar and then placed my right arm trocar left arm trocar and the second left arm trocar, we placed our air seal port and our finance assistant suction port, I then went into the abdomen we inspected the abdomen we then identified the colon and as was coming out of the pelvis we then identified the vas deferens opened up the vas deferens all along the course of the pelvis down to the prostate dissected the right vas deferens right seminal vesicle dissected out the left breast left vas deferens and left seminal vesicle this was all done put posterior to the bladder below the prostate open up the space below the prostate and the rectum stain above the do not be his fascia and dissected all the way to the apex here I then pulled out the pelvis we then docked the dropped the bladder down open up the space of Retzius the bladder was then placed on traction we then went to the right pelvic lymph nodes and dissected out the obturator lymph nodes in the right side these were done with meticulously with clips taken all the lymph node tissue from in front of the vein the obturator nerve and the pelvic sidewall once this was done then with the left side again took out the lymph node tissue behind the left vein this is the left iliac vein pelvic sidewall and street sweeper operator nerve little bit of bleeding was encountered in dissecting out the left pelvic lymph nodes but is very close to the street sweeper operator nerve so then using cautery and eventually this stopped on its own with observation I then went up to the prostate prostate was put on traction we cleaned off the fat of the topical prostate this was sent off as a specimen, fat over prostate. We then incised the endopelvic fascia in the right side and incised in the pelvic Fascia in the left side dissected up to the to the apex until we encountered the dorsal vein complex then the dorsal vein complex was sutured tight shot with a stitch once this was accomplished then went back to the junction between the bladder and the prostate dissected between the bladder and prostate all the way down to the urethra encountered the catheter pulled the catheter up and then dissected between the posterior aspect of the prostate and bladder until I encountered the seminal vesicle and vas deferens. We then went to the left side first clipped the pedicles and the prostate in the left side and then teased off the neurovascular bundle off the posterior aspect of the prostate all the way to the apex then went to the right side of the pedicles in the right side but to the right side at the palpable hard nodule did not do a true nerve sparing but partial nerve sparing in the on the right side taken the right side neurovascular bundle with the prostate and not saving the but a partial nerve sparing during the bladder neck dissection I dropped down the EMG electrodes we tested the pelvic lymph nerves on the right side we had good action potential on the right side we tested the pelvic nerves in the left side good action potential in the left side during the dissection these action potentials were checked periodically to make sure I was not injuring the pelvic nerves and these were spared entirely with the dissection we then transected through the dorsal vein complex and there was no bleeding and we transected through the urethra major we could save a nice stump of the urethra but also made sure not to get too close to the apex of the prostate avoided avoid a margin. I then completed the suture suspension of the urethra we suspended the suture from the bladder neck to the urethra running a continuous fashion over a catheter this is an anti-incontinence procedure once this was completed then we checked the pelvic nerves to the urethra this was intact we put a catheter in the bladder but the bladder and irrigation there was no leakage from the anastomosis we then extracted the prostate from the umbilical site we closed all this all the closed the Kirby Soto stitch 1012 Kirby Soto Soto stitch. And then we extracted all the ports we closed the incisions with subcuticular stitches and the patient anesthetic was reversed taken at the PACU good condition that should end dictation Type of Anesthesia:: General Specimen's removed: prostate - Admit VTE Documentation VTE Present on Admission: No VTE Mechan Device Prophylaxis: SCD's VTE Pharm Prophylaxis ordered?: No Reason prophylaxis not ordered:: Treatment Not Indicated 11/21/17 1109 <Electronically signed by Kade Mills MD> Date Kade Mills MD CC: Kade Mills MD; Marquis Boyle MD Signed DISCHARGE INSTRUCTION Observed: 11/21/2017 Status: F Source: [place] [place] 7:31 AM [facility] REPOSITORY [facility] Medical Records Department [address] [place] [address] Instructions for Home/Discharge Instructions 11/21/17 0729 MR#: [id number] Acct: [id number] Name: GILA DOSHI Rep #: [id number] : 1955 62 From: Kade Mills MD PCP: Marquis Boyle MD Status: [facility] Discharge Diet: Light diet - advance as tolerated, Soft diet Discharge Activity: May not drive while taking narcotic pain medications., May Shower May shower in (days): 1 Lifting Restrictions: no lifting over 10 lbs Call your doctor if your incision/area has: Continuous Slow Oozing, Sudden Increased Bleeding, Increased Pain/ Swelling, Increased Redness, Foul Smelling Discharge, Swelling at the incision site Call your doctor if you observe: Fever of 101 or Higher, Inability to have a bowel movement, Shortness of breath, Chest pain, Calf discomfort, Uncontrolled pain Suture Line Care: Avoid Pulling/Pushing, Avoid Pinching/Bending Catheter: Mcneil to leg bag, Mcneil to large bag Drain: [place] Instructions: Discharge Instructions for Radical Prostatectomy Allergies/Adverse Reactions: Allergies No Known Allergies Allergy (Unverified 11/14/17 14:37) Medications to take at Discharge Famotidine [Pepcid] 20 mg PO PRN PRN 11/13/17 ranitidine 150 mg tablet 150 mg PO DAILY 11/14/17 Ciprofloxacin [Cipro] 500 mg PO BID #20 tab 11/21/17 Docusate Sodium [Colace] 100 mg PO BID #20 cap 11/21/17 Hydrocodone/Acetaminophen [[place] 5-325 Tablet] 1 ea PO Q4H PRN PRN 7 Days #10 tab 11/21/17 The following prescriptions were given: Hydrocodone/Acetaminophen [[place] 5-325 Tablet] 1 ea PO Q4H PRN PRN 7 Days #10 tab PRN Reason: Pain Ciprofloxacin [Cipro] 500 mg PO BID #20 tab Docusate Sodium [Colace] 100 mg PO BID #20 cap Primary Care Physician: Marquis Boyle MD [Primary Care Provider] - Test Results: Test results from this visit will be discussed in further detail at your follow-up appointment, if applicable. Please Follow Up With: Kade Mills MD When: November 29 at 1:30 pm Proposed Discharge Date: 11/22/17 11/21/17 0731 <Electronically signed by Kade Mills MD> Date Kade Mills MD CC: Marquis Boyle MD PROSTATE RADICAL Observed: 11/21/2017 Status: F Source: [place] RESECTION 12:00 AM [facility] REPOSITORY Patient: GILA DOSHI : 1955 (62/M) Acct Num: [id number] Phys: Kade Mills MD Unit Num: [id number] Loc: MS2 [id number] Specimen: [id number] Received: 11/21/171401 Spec Type: PROSTATE TISSUES 1 TISSUES: A. Prostate, NOS B. Lymph node of pelvis, NOS C. Lymph node of pelvis, NOS D. Adipose tissue COMMENT The tumor in the right lobe measures approximately 3 x 2.0 x 1.5 cm (measured microscopically) and involves apical to basal portion of the prostate and present in slides #.5, 6, 8, 10, 12, 14, 16 AND 18. The tumor in the left lobe measures approximately 3 x 1.8 x 1.0 cm (measured microscopically) and involves apical to basal portion of the prostate and present in slides #.5, 6, 7, 9, 11, 13 15 AND 17. Please make reference to previous specimen ([id number]) right prostate, apex, mid and base and left prostate, mid and base with diagnosis of adenocarcinoma. Case has been reviewed in consultation with Dr. Perez who concurs with the above diagnosis. IDC:AM GROSS DESCRIPTION A - Received in fixative is one container labeled with the patient's name and designated prostate. The specimen consists of a radical prostatectomy specimen consisting of prostate and bilateral seminal vesicles and vas deferens weighing 43.5 gm. The prostate measures 4.5 cm craniocaudally, 4.5 cm transversely, 3.5 cm anterior-posteriorly. The right seminal vesicle measures 3 x 1.5 x 0.7 cm and right vas deferens measures 3.5 cm in length and 0.5 cm in diameter. The left seminal vesicle measures 3 x 1.5 x 0.5 cm and left vas deferens measures 3 cm in length and 0.5 cm in diameter. The prostate is inked as follows: anterior - yellow, posterior - black, right lateral surface - blue, left lateral surface - green. The seminal vesicle and vas deferens are inked as follows: posterior surface right and left seminal vesicle and vas deferens - black, anterior surface right seminal vesicle and vas deferens - blue, anterior surface left seminal vesicle and vas deferens - green. Sections do not reveal any well-defined mass lesions. Sales Contract Administrator sections are submitted in 20 cassettes as follows: 1 - right seminal vesicle and vas deferens, 2 - left seminal vesicle and vas deferens, 3 - apical, urethral margin, enface, 4 - bladder base margin, enface, 5-8 - apical portion prostate, 9-14 - middle portion prostate, 15-20 - basal portion prostate (19 AND 20 contain the most basal portion of the prostate). About 90% of the prostate is submitted. / SJ:mino B - Received in fixative is one container labeled with the patient's name and designated left pelvic lymph node. The specimen consists of a piece of munguia- yellow adipose tissue measuring 3.5 x 1.8 x 1 cm. One lymph node is identified measuring 3 cm in greatest dimension. The entire specimen is submitted in three cassettes as follows: 1 AND 2 - one serially sectioned lymph node, 3 - rest of the lymph node. The specimen will be submitted after additional fixation. / : 11/21/17 C - Received in fixative is one container labeled with the patient's name and designated right pelvic lymph node. The specimen consists of two pieces of yellow adipose tissue measuring 5.5 x 2.5 x 1 cm and 2 x 1 x 0.2 cm. One lymph node is identified measuring 5 cm in greatest dimension. The entire specimen is submitted in four cassettes as follows: 1-3 - one serially sectioned lymph node , 4 - rest of the lymph node. Sections will be submitted after additional fixation. / : 11/21/17 D - Received in fixative is one container labeled with the patient's name and designated fat over prostate. The specimen consists of an irregular piece of yellow adipose tissue measuring 4 x 1.5 x 0.3 cm. No lesion is identified. The entire specimen is submitted in one cassette. Sections will be submitted after additional fixation. / : 11/21/17 TC:0 CPT: 62694, 46815 x2, 66543 HEADER OPERATION: Laparoscopic robotic radical prostatectomy PRE-OP DIAGNOSIS: Prostate cancer, elevated PSA TISSUE SUBMITTED: A - Prostate, B - Left pelvic lymph node, C - Right pelvic lymph node, D - Fat over prostate MICROSCOPIC DESCRIPTION Slides are reviewed. MICROSCOPIC DIAGNOSIS A. Prostate, radical prostatectomy: Prostatic adenocarcinoma. See cancer summary below. B. Left pelvic lymph node, biopsy: Three out of three lymph nodes, negative for metastatic carcinoma. C. Right pelvic lymph node, biopsy: One out of one lymph node, negative for metastatic carcinoma. D. Fat over prostate: Negative for carcinoma. : 11/27/17 PROSTATE CANCER (RADICAL) SUMMARY: Procedure - radical prostatectomy Prostate size - 4.5 cm craniocaudally, 4.5 cm transversely and 3.5 cm anterior-posteriorly. Prostate weight - 43.5 gm Lymph node sampling - pelvic lymph node dissection Histologic type - adenocarcinoma (acinar, not otherwise specified) Histologic grade (Masood Pattern): Primary pattern - 4 Secondary pattern - 3 Tertiary pattern - 5 Total [place] score - 7 Tumor Quantitation: Proportion (%) of prostate involved by tumor - ~50-60% Tumor size - see comment Extraprostatic extension - present, focal Right and left lobe, lateral and posterior surface. Seminal vesicle invasion - not identified Margins - Margins uninvolved by invasive carcinoma. Treatment effect on carcinoma - no known presurgical therapy. Lymph-Vascular invasion - not identified Perineural invasion - present and frequent Regional lymph nodes - no regional lymph node metastasis. Number examined - 4 Number involved - 0 Distant metastasis - not applicable Additional pathologic findings - Focal high-grade prostatic intraepithelial neoplasia (HGPIN). Benign glandular hyperplasia. Chronic inflammation. Ancillary studies - not performed PATHOLOGIC STAGE: pT3a Nx Mx The above summary is in compliance with [employer] [place] [employer] (CAP) Cancer Protocols Checklist and [place] [employer] Committee on Cancer (AJCC), Staging Manual, 8th Ed. PSA RESULTS 1 Date Time Test Result Flag (u) Normal Range 07/11/17 1215 PSA,TOT SCREEN 6.65 H 0.00-4.00 ng/mL 1 This test was performed using the TPSA assay method for the Smule chemistry system. Values obtained with different assay methods cannot be used interchangably. When changing PSA assays in the course of monitoring a patient, additional sequential testing should be carried out to confirm baseline values. Signed Gavin Martinez 11/27/17 <signature on file> Performed By: #### PPROST #### [facility] [address] [place], [address] ECHOCARDIOGRAM COMPLETE Observed: 11/19/2017 Status: F Source: [place] 12:19 PM [facility] REPOSITORY [facility] Cardiovascular Services [address] [place] [address] Echo Complete 11/19/17 1026 MR#: [id number] Acct: [id number] Name: GILA DOSHI Rep #: [id number] : 1955 62 From: Oskar Elilson MD Attending Dr: Oskar Ellison MD Status: REG CLI Ordering Dr: Oskar Ellison MD Date: 11/19/17 Location: CVS Sex: M C Admitted: Reason For Study: ARRHYTHMIA Procedure This was a 2D Doppler, Color Flow transthoracic echocardiogram. Exam performed in department. Left Ventricle Normal LV size. Mild concentric left ventricular hypertrophy. Left ventricular systolic function is normal. The estimated ejection fraction is 55 %. Normal diastology for age. No regional wall motion abnormalities noted. Right Ventricle Normal RV size. Normal systolic function. Atria The left atrium is mildly enlarged. Normal right atrium. Mitral Valve Normal mitral valve. Mild (1+) eccentric mitral valve insufficiency. Tricuspid Valve Normal tricuspid valve. Mild (1+) tricuspid valve insufficiency. Pulmonary artery systolic pressure is 23 mmHg. Aortic Valve Normal aortic valve. Trisinus/trileaflet aortic valve. Pulmonic Valve Normal pulmonic valve. Great Vessels Mildly dilated aortic root. The pulmonary artery is normal size. Normal inferior vena cava. Pericardium/Pleural No pericardial effusion. MMode/2D Measurements AND Calculations LVIDd: 5.3 cm IVSd: 1.2 cm Ao root diam: 3.8 cm LVIDs: 3.2 cm LVPWd: 1.2 cm LA dimension: 3.3 cm RVDd: 3.4 cm FS: 38.5 % LAV(MOD-bp): 68.3 ml LA A4 area: 20.4 cm2 RA A4 area: 15.9 cm2 LAV(MOD-bp) Indexed: 31.7 ml/m2 LAV(MOD-sp2): 66.4 ml LAV(MOD-sp4): 66.4 ml Doppler Measurements AND Calculations MV E max moisés: 58.8 cm/sec Lat Peak E' Moisés: 8.4 cm/sec Med Peak E' Moisés: 7.0 cm/sec MV A max moisés: 49.7 cm/sec E/E' lat: 7.0 E/E' med: 8.4 MV E/A: 1.2 Ao V2 max: 113.1 cm/sec LV V1 max: 97.2 cm/sec PA V2 max: 89.4 cm/sec Ao max P.1 mmHg LV V1 max P.8 mmHg TR max moisés: 218.7 cm/sec TR max P.2 mmHg Interpretation Summary Normal LV size. Mild concentric left ventricular hypertrophy. Left ventricular systolic function is normal. The estimated ejection fraction is 55 %. Normal diastology for age. Mild (1+) tricuspid valve insufficiency. Ordering Physician: Oskar Ellison Referring Physician: Marquis Boyle Performed By: Jia Muhammad, ZAYRA, RVT 11/19/171217 Date Oskar Ellison MD CC: Oskar Ellison MD; Marquis Boyle MD Date Dictated: 11/19/17 1026 Date Transcribed: 11/19/171217 3D Technologist: Signed 12 LEAD ELECTROCARDIOGRAM Observed: 11/14/2017 Status: F Source: [place] 3:33 PM [facility] REPOSITORY [facility] Cardiovascular Services [address] [address] EKG - SDC 11/13/17 1034 MR#: [id number] Acct: [id number] Name: GILA DOSHI Rep #: [id number] : 1955 62 From: Marquis King MD Attending Dr: Lina ETIENNE,Kade Castro Status: PRE SDC Ordering Dr: Lyndon Snider MD Date: 11/13/17 Location: [facility] Sex: M C Admitted: Test Reason : Blood Pressure : / mmHG Vent. Rate : 050 BPM Atrial Rate : 050 BPM P-R Int : 184 ms QRS Dur : 094 ms QT Int : 452 ms P-R-T Axes : -17 012 044 degrees QTc Int : 412 ms Sinus bradycardia Otherwise normal ECG Confirmed by FERNANDO ETIENNE, MARQUIS ([id number]), photo editor ANAIS INGRAM ([id number]) on 11/14/2017 3:33:30 PM Referred By: Kade Mills Confirmed By:MARQUIS KING MD 11/14/17 1533 Date Marquis King MD CC: Lyndon Snider MD; Kade iMlls MD; Marquis Boyle MD Date Dictated: 11/13/17 1034 Date Transcribed: 11/13/17 103 3D Technologist: Signed CARDIOLOGY VISIT Observed: 11/14/2017 Status: F Source: [place] REPORT 3:19 PM [facility] REPOSITORY [facility] [address] [place] [address]. [address] [place] [address] OFFICE VISIT Date of Service: 11/14/17 MR#: [id number] Acct: [id number] Name: GILA DOSHI Rep #: [id number] : 1955 Provider: Oskar Ellison MD Age/Sex: 62/M [place] [facility]: Signed HPI HPI Chief Complaint: Preop evaluation. Details: GILA DOSHI, is a 62 M who presents to the office today for preoperative evaluation. He is a gentleman with no previous cardiac history who was scheduled to undergo preoperative testing. This was for laparoscopic robotic radical prostatectomy. He was noted on an EKG to be mildly bradycardic and he had complained of some chest discomfort after he had pulled a muscle. It was attributed to cardiac finding and he was asked to come for cardiac evaluation. This discomfort is not associated with exertion no palpitations no paroxysmal nocturnal dyspnea no pedal edema no radiation of the above. He has had no previous cardiac issues. He has had no neck arm or jaw discomfort suggest angina. His electrocardiogram was reviewed which demonstrated sinus bradycardia with a rate of 50 bpm. No acute changes were noted on electrocardiogram performed here in the office demonstrated sinus rhythm with a rate of 62 bpm. His physical exam today is unremarkable. Intake Vital Signs11/14/17 Height 6 ft 4 in 11/14/17 Blood Pressure 120/60 11/14/17 Respiratory Rate 16 11/14/17 Pulse Rate 66 Intake Visit Reasons: CP identified during PAT for uro surgery Allergies No Known Allergies Allergy (Unverified 11/14/17 14:37) Medications Famotidine [Pepcid] 20 mg PO PRN PRN 11/13/17 [History Confirmed 11/14/17] ranitidine 150 mg tablet 150 mg PO DAILY 11/14/17 [History Confirmed 11/14/17] PFSH Medical History Prostate cancer (Acute) GERD (gastroesophageal reflux disease) (Chronic) Surgical History H/O hand surgery (Resolved) History of cataract surgery (Resolved) Family History Mother Breast cancer Father Cancer lung cancer Brother Hypertension Social History Smoking Status: Former smoker ROS Const Const: Negative for fatigue, weakness, difficulty sleeping, frequent falls, excessive sweating or headache(s) Eyes Eyes: Negative for loss of peripheral vision, transient loss of vision, blurry vision, tunnel vision or double vision ENT ENT: Negative for headache(s), dizziness, Nosebleed/epistaxis or balance problems Cardio Chest Pain: No Palpitations: No Edema: None Muscle aches with walking: None Additional Details: Pulled anterior chest muscle when lifting heavy hose over head. Had some muscle pain when raising arms. Resp Respiratory: Negative for SOB with activity, SOB at rest, SOB orthopnea\SOB lying down, paroxysmal nocturnal dyspnea or Cough GI GI: Negative nausea, heartburn, black,tarry stools or vomiting : Negative for hematuria Musc Musc: Negative for balance problems, muscle aches/ myalgia, muscle weakness or joint pain Skin Skin: Negative non-healing lesions, unusual bruising or rash Neuro Neuro: Negative for weakness, frequent falls, headache(s), blurry vision, double vision, dizziness, lightheadedness, orthostatic symptoms, near syncope, syncope or lack of coordination Orestes Hematologic/Lymphatic: Negative for easy bruising or easy bleeding Endo Endo: Negative for fatigue, excessive sweating or increased thirst/drinking Psych Psych: Negative for anxiety or depression Allergy Allergy/Immunology: Negative for hives, Negative for rash Cardiology Exam Const Appearance: cooperative, healthy appearing, well developed, well groomed and no acute distress Nutritional Appearance: well nourished and average body habitus Orientation: alert, awake and oriented x3 Head Head: normal to inspection, normocephalic and atraumatic Ears: hearing grossly normal bilaterally and external ears normal Nose: external nose normal, nasal mucous membranes and turbinates normal, nares normal, septum normal, no nasal discharge Face and Sinus: face symmetric Mouth: oral mucosae normal, tongue normal, oropharynx normal and moist mucous membranes Teeth and gingiva: dentition normal Throat: posterior oropharynx normal, tonsils normal and uvula midline Eyes General: appearance normal, both eyes and all related structures Eyelids: eyelids normal Conjunctivae: conjunctivae normal Pupils: PERRL, normal by confrontation and accommodation normal EOM: EOM intact bilaterally Neck Neck: normal visual inspection, trachea midline and no JVD JVD: +5 Carotids: normal carotid upstroke and bounding pulses Chest Chest inspection: normal inspection of the chest, symmetric chest movement and normal respiratory effort Auscultation: Bilateral: Clear to Auscultation Cardio Palpation: normal PMI Rate: regular rate Rhythm: regular rhythm Heart sounds: S1 normal, S2 normal and normal, physiologic split S2; negative rub, gallop or murmur GI GI: normal to inspection, soft, no hepatosplenomegaly and bowel sounds present Neuro General: alert, awake, oriented x3, no focal sensory deficit, gait normal and moves all extremities Skin Skin: no rashes or lesions noted Extremities Pulses: Normal: Right Femoral Pulse, Left Femoral Pulse, Right Dorsalis Pedis Pulse, Left Dorsalis Pedis Pulse, Right Posterior Tibial Pulse, Left Posterior Tibial Pulse, Right Radial Pulse, Left Radial Pulse Lower Extremity Edema: None: Bilateral Musculoskel Musculoskeletal: No joint tenderness Psych Psychological: normal affect Assessment AND Plan 1. Preop cardiovascular exam Z01.810 Plan His preoperative cardio vascular exam appears to be normal. At this time I do not detect any normalities to warrant him not to be able to undergo the intended surgery. I do not think that any further cardiac evaluation would necessarily be warranted. His electrocardiogram demonstrating sinus rhythm and sinus bradycardia is benign. An echocardiogram can be performed to assess his left ventricular function but I do not think that this should preclude him undergoing surgery. I have personally called preadmission testing to let them know of the above. Thank you for allowing me to participate in the care of your patient. Please don't hesitate to call if any issues arise Orders Orders: Plan Detail Other Orders Orders: Follow Up prn Coding Level of Care Code Off vis,new,level 4 Diagnoses Preop cardiovascular exam Z01.810 Coding Level of Care Code Off vis,new,level 4 Diagnoses Preop cardiovascular exam Z01.810 11/14/17 1519 <Electronically signed by Oskar Ellison MD> Date Oskar Ellison MD Cosigner Signature: Date (if applicable) CC: Kade Mills MD; Marquis Boyle MD 12 LEAD EKG PERFORMED Observed: 11/14/2017 Status: F [place] [facility] [place] PM [facility] REPOSITORY [facility] [address] [place] [address] 12 Lead EKG performed by SHANA 11/14/17 1443 MR#: [id number] Acct: [id number] Name: GILA DOSHI Rep #: [id number] : 1955 62 From: Oskar Ellison MD Attending Dr: Oskar Ellison MD Status: DEP AMB Ordering Dr: Oskar Ellison MD Date: 11/14/17 [place] [facility] Sex: M C Admitted: BMS/12 Lead EKG performed by [facility] ECG Report Interpretation Sinus Rhythm WITHIN NORMAL LIMITSElectronically signed on 02/26/2018 at 16:35 by Oskar Ellison [employer] Software Version [id number] 02/26/18 1645 Date Oskar Ellison MD CC: Marquis Boyle MD Date Dictated: 11/14/171442 Date Transcribed: 11/14/171442 3D Technologist: CO Signed CBC-COMPLETE BLOOD CNT Collected: 11/13/2017 Status: F Source: [place] NO DIFF 11:45 AM [facility] REPOSITORY TYPE CODE TESTS RESULT OUT OF RANGE REFERENCE UNITS LAB L100.1000 4.4-11.0 K/mm3 Normal WBC 6.4 LAB L100.1200 4.6-6.2 M/mm3 Normal RBC 4.72 LAB L100.1300 13.0-16.5 g/dl Normal HGB 13.3 LAB L100.1400 40-54 % Normal HCT 41.8 LAB L100.1500 80-94 fL Normal MCV 88.6 LAB L100.1600 27.0-32.0 pg Normal MCH 28.2 LAB L100.1700 32-36 g/gl Low MCHC 31.8 LAB L100.1810 11.6-14.6 % Normal RDW CV 14.1 LAB L100.1820 35.1-43.9 fl High RDW SD 46.1 LAB L100.1900 150-450 K/mm3 Normal PLT 176 LAB L100.2000 6.2-12.0 fl Normal MPV 12.0 Performed By: #### L100.0500 #### [facility] [address] [place], [address] TYPE AND SCREEN Collected: 11/13/2017 Status: F Source: [place] 11:45 AM [facility] REPOSITORY Order Comment: Reason for Type AND Screen/Red Cells: SURGERY Surgery Date: 11/21/17 Type of Surgery: RADICAL PROSTATECTOMY TYPE CODE TESTS RESULT OUT OF RANGE REFERENCE UNITS LAB B10.0800 O Normal BLOOD TYPE GEL POSITIVE LAB B100.4000 Normal Antibody NEGATIVE Screen Performed By: #### B101.7450 #### [facility] [address] [place], [address] ABDOMEN SINGLE VIEW Observed: 11/13/2017 Status: F Source: [place] 10:01 AM [facility] REPOSITORY [facility] Imaging Services [address] [place] [address] Abdomen Single View MR#: [id number] Acct: [id number] Name: GILA DOSHI Rep #: [id number] : 1955 M 62 From: Lewis Tony MD PCP: Marquis Boyle MD Status: PRE SDC Study: Abdomen Single View Date of Exam: 11/13/17 Exam# [id number] Ordering Dr: Kade Mills MD STUDY: X-RAY - ABDOMEN/PELVIS REASON FOR EXAM: Male, 62 years old. Preoperative evaluation for prostate surgery. TECHNIQUE: Single AP view of the abdomen / pelvis. COMPARISON: None. FINDINGS: Normal visualized lung bases. There is an unremarkable bowel gas pattern. There is no demonstrated free abdominal air. The visualized liver, spleen and kidneys are grossly normal in size and morphology. There are phleboliths in pelvis. Normal visualized osseous structures. RAD/Abdomen Single View IMPRESSION: No acute pathology. Electronically Signed: Lewis Tony MD at 11:22 EDT , Service support , CC: Kade Mills MD; Marquis Boyle MD 3D Technologist: Signed CREATININE FINGERSTICK Collected: 10/05/2017 Status: F Source: [place] 6:44 AM [facility] REPOSITORY TYPE CODE TESTS RESULT OUT OF RANGE REFERENCE UNITS LAB L9100.0210 0.70-1.30 mg/dL Normal CREATININE WB 1.0 LAB L9100.0220 >60 mL/min EGFR WB Normal > 60.0000 Performed By: #### L9100.0200 #### [facility] Point of Care [address] [place] [address] ABDOMEN/PELVIS WITH Observed: 10/05/2017 Status: F Source: [place] CONTRAST 6:40 AM [facility] REPOSITORY [facility] Imaging Services [address] [place] [address] Abdomen/Pelvis WITH Contrast MR#: [id number] Acct: [id number] Name: GILA DOSHI Rep #: [id number] : 1955 M 62 From: Praful Connelly MD PCP: Marquis Boyle MD Status: REG CLI Study: Abdomen/Pelvis WITH Contrast Date of Exam: 10/05/17 Exam# [id number] Ordering Dr: Kade Mills MD STUDY: CT ABDOMEN AND PELVIS WITH CONTRAST REASON FOR EXAM: Male, 62 years old. Prostate cancer RADIATION DOSAGE (If Supplied By Facility): CTDIvol = ( 17.17 ) mGy, DLP = ( 949.85 ) mGycm TECHNIQUE: Transaxial images were obtained from the dome of the diaphragm to the symphysis pubis without oral contrast. 100 ml of Isovue 370 contrast was administered. Sagittal and coronal images were reconstructed. Individualized dose optimization techniques were used for this CT. COMPARISON: None. FINDINGS: The lung bases are clear. There is a 1.9 cm cyst in the posterior segment of the right lobe of the liver. No dilated intrahepatic biliary radicles. The gallbladder is normal with no calcifications within it. There is no pericholecystic fluid collection or streakiness The spleen is normal. The pancreas is normal. Both adrenals are normal. The kidneys are normal with no masses, calculi or hydronephrosis The stomach is normal. There is no bowel distention, acute appendicitis or diverticulitis. No constricting lesions are seen in large bowel. The abdominal wall is intact with no hernias. There is no ascites or any free intraperitoneal air. No indication of epiploic appendagitis The vascular structures in the retroperitoneum are normal. There is no retrocrural, retroperitoneal or mesenteric adenopathy. Disc disease at L5-S1 The urinary bladder is normal.--The prostate is normal in size but the seminal vesicle descending. There is no inguinal or pelvic adenopathy. There is no inguinal hernia. . CT/Abdomen/Pelvis WITH Contrast IMPRESSION: No acute findings in the abdomen and pelvis. Specifically there is no acute appendicitis or diverticulitis. A 1.9 cm benign cyst in the posterior segment of the right lobe of the liver Electronically Signed: Praful Connelly, at 7:07 EDT Tel , Service support , CC: Kade Mills MD; Marquis Boyle MD 3D Technologist: Signed BONE SCAN WHOLE Observed: 10/03/2017 Status: F Source: [facility] 8:43 AM [facility] REPOSITORY [facility] Imaging Services [address] [place] [address] Bone Scan Whole Body MR#: [id number] Acct: [id number] Name: GILA DOSHI Rep #: [id number] : 1955 M 62 From: Dinesh Aragon DO PCP: Marquis Boyle MD Status: REG CLI Study: Bone Scan Whole Body Date of Exam: 10/03/17 Exam# [id number] Ordering Dr: Kade Mills MD CLINICAL: 62-year-old male with reported history of carcinoma of the prostate. WHOLE BODY 99m Tc MDP RADIONUCLIDE BONE SCINTIGRAPHY COMPARISON: None available FINDINGS: Following the intravenous administration of 25.8 mCi of 99m Tc MDP, whole body bone images reveal: 1. Increased radiopharmaceutical concentration is demonstrated in the sixth and 10th thoracic vertebra posteriorly on the right, seventh thoracic vertebra posteriorly on the left, mid cervical spine posteriorly on the left and right, lower anterior cervical spine, acromioclavicular compartments of both shoulders, right elbow articulation, the left wrist, both knees, right-left ankles, the left mid and forefoot. 2. The remaining skeletal structures are scintigraphically unremarkable with normal-appearing renal images and urinary bladder activity identified. Facilitated uptake is noted in the bilateral maxillary mandible most consistent with periostitis and/or periodontal disease. NM/Bone Scan Whole Body IMPRESSION: 1. The increase in radiopharmaceutical concentration identified in the cervical and thoracic spine, bilateral shoulders, right elbow, left wrist, knees bilaterally, right-left ankles, the left mid and forefoot is most consistent with degenerative arthritis. 2. There is no definitive typical scintigraphic evidence of skeletal metastatic disease on the current examination. Electronically Signed: Dinesh Aragon DO at 23:49 EDT Tel , Service support , CC: Kade Mills MD; Marquis Boyle MD 3D Technologist: Signed PROSTATE BIOPSY Observed: 09/24/2017 Status: F Source: [place] 8:00 AM [facility] REPOSITORY Patient: GILA DOSHI : 1955 (62/M) Acct Num: [id number] Phys: Lina ETIENNE,Kade Castro Unit Num: [id number] Loc: LABSPEC Specimen: [id number] Received: 09/24/17 1035 Spec Type: PROST BX TISSUES TISSUES: A. PROSTATE RIGHT B. PROSTATE RIGHT C. PROSTATE RIGHT D. PROSTATE LEFT E. PROSTATE LEFT F. PROSTATE LEFT COMMENT Case has been reviewed in consultation with Dr. Perez who concurs with the above diagnosis. IDC:AM GROSS DESCRIPTION A - Received is one container designated prostate, right apex. The specimen consists of one elongated fragment of light munguia-white soft tissue measuring 1.7 cm in length and 0.1 cm in diameter. The specimen is totally submitted in one cassette. B - Received is one container designated prostate, right mid. The specimen consists of two elongated fragments of light munguia-white soft tissue each measuring 1.3 cm in length and 0.1 cm in diameter. The specimen is totally submitted in one cassette. C - Received is one container designated prostate, right base. The specimen consists of two elongated fragments of light munguia-white soft tissue each measuring 1.5 cm in length and 0.1 cm in diameter. The specimen is totally submitted in one cassette. D - Received is one container designated prostate, left apex. The specimen consists of one elongated fragment of light munguia-white soft tissue measuring 1.3 cm in length and <0.1 cm in diameter. The specimen is totally submitted in one cassette. E - Received is one container designated prostate, left mid. The specimen consists of two elongated fragments of light munguia-white soft tissue measuring 1 and 1.3 cm in length and 0.1 cm in diameter. The specimen is totally submitted in one cassette. F - Received is one container designated prostate, left base. The specimen consists of two elongated fragments of light munguia-white soft tissue measuring 1 and 1.4 cm in length and 0.1 cm in diameter. The specimen is totally submitted in one cassette. / SJ:rg 09/25/17 TC:0 CPT: 89552 x6 HEADER OPERATION: Prostate biopsy PRE-OP DIAGNOSIS: R97.20 TISSUE SUBMITTED: A - Right apex, B - Right mid, C - Right base, D - Left apex, E - Left mid, F - Left base MICROSCOPIC DESCRIPTION Slides are reviewed. MICROSCOPIC DIAGNOSIS A. Right prostate, apex, core biopsy: Prostatic adenocarcinoma: Masood grade: 4+3=7 Number of cores involved: 1 out of 1 Proportion of tissue involved: ~60% Perineural invasion: Present. Greatest tumor length: 0.8 cm Focal high-grade prostatic intraepithelial neoplasia (HGPIN). B. Right prostate, mid, core biopsy: Prostatic adenocarcinoma: Masood grade: 3+4=7 Number of cores involved: 2 out of 2 Proportion of tissue involved: 80% Perineural invasion: Present. Greatest tumor length: 0.9 cm Focal high-grade prostatic intraepithelial neoplasia (HGPIN). C. Right prostate, base, core biopsy: Prostatic adenocarcinoma: [place] grade: 4+5=9 Number of cores involved: 2 out of 2 Proportion of tissue involved: 100% Perineural invasion: Present. Greatest tumor length: 1.3 cm Focal high-grade prostatic intraepithelial neoplasia (HGPIN). D. Left prostate, apex, core biopsy: Prostatic tissue, negative for malignancy. E. Left prostate, mid, core biopsy: Prostatic adenocarcinoma: [place] grade: 4+3=7 Number of cores involved: 2 out of 2 Proportion of tissue involved: ~80% Perineural invasion: Present, frequent. Greatest tumor length: 0.8 cm Focal high-grade prostatic intraepithelial neoplasia (HGPIN). F. Left prostate, base, core biopsy: Prostatic adenocarcinoma: [place] grade: 4+3=7 Number of cores involved: 2 out of 2 Proportion of tissue involved: ~50% Perineural invasion: Present. Greatest tumor length: 0.8 cm Focal high-grade prostatic intraepithelial neoplasia (HGPIN). Chronic inflammation. SJ:mino 09/26/17 PSA RESULTS Date Time Test Result Flag (u) Normal Range 07/11/17 1215 PSA,TOT SCREEN 6.65 H 0.00-4.00 ng/mL This test was performed using the TPSA assay method for the [employer] chemistry system. Values obtained with different assay methods cannot be used interchangably. When changing PSA assays in the course of monitoring a patient, additional sequential testing should be carried out to confirm baseline values. Signed Gavin Martinez 09/26/17 <signature on file> Performed By: #### PPROSBIL #### [facility] [address] [place], [address] DOWNTIME REPORT Observed: 07/26/2017 Status: F Source: [place] 1:26 PM [facility] REPOSITORY [facility] Medical Records Department [address] [place] [address] Downtime Report MR#: [id number] Acct: [id number] Name: GILA DOSHI Rep #: [id number] : 1955 62 From: Hai Ingram PCP: Marquis Boyle MD Status: REG CLI This patient was seen during an EMR downtime July 09, 2017 - July 16, 2017. This patient may have a combination of paper and electronic documentation or all paper documentation. All documentation is viewable within the e-chart portion of [employer] for each patient visit. VITAMIN D,25 HYDROXY Collected: 07/11/2017 Status: F Source: [place] 12:15 PM [facility] [place] REPOSITORY Order Comment: Order Date: 04/30/17 Order Info: 61294-2 - VITD25 TYPE CODE TESTS RESULT OUT OF RANGE REFERENCE UNITS LAB L506.1000 29.95-100.01 ng/mL Normal Vitamin D 31.3 25-OH Result Comment: Vitamin D 25(OH) Status Range Deficiency <20 ng/mL (50nmol/L) Insuffciency 20 - 30 ng/mL (50 - 75 nmol/L) Sufficiency 30 - 100 ng/mL (75 - 250 nmol/L) Toxicity >100 ng/mL (>250 nmol/L) Performed By: #### L506.1000 #### [facility] [address] [place], [address] PSA,TOTAL - ANNUAL Collected: 07/11/2017 Status: F Source: [place] SCREEN 12:15 PM [facility] [place] REPOSITORY Order Comment: RESULT(S) PREVIOUSLY REPORTED ON MANUAL REQUISITION DURING DOWNTIME. TYPE CODE TESTS RESULT OUT OF REFERENCE UNITS RANGE LAB L501.9910 0.00-4.00 ng/mL High PSA,TOT 6.65 SCREEN Result Comment: This test was performed using the TPSA assay method for the Smule chemistry system. Values obtained with different assay methods cannot be used interchangably. When changing PSA assays in the course of monitoring a patient, additional sequential testing should be carried out to confirm baseline values. Performed By: #### L501.9910 #### [facility] [address] [place], [address] BASIC METABOLIC Collected: 04/26/2017 Status: F Source: [place] PROFILE (BMP) 2:39 PM [facility] [place] REPOSITORY TYPE CODE TESTS RESULT OUT OF RANGE REFERENCE UNITS LAB L501.0100 74-106 mg/dL Normal GLU 86 Result Comment: Please note revised GLUCOSE reference range effective 2017. LAB L501.1000 7-18 mg/dL Normal BUN 16 LAB L501.1100 0.70-1.30 mg/dL Normal CREAT,SERUM 0.94 Result Comment: The validity of the calculated GFR AND GFRAA in patients over 70 years has not been determined. Clinical correlation is essential. LAB L501.1110 >60 mL/min Normal EST GFR 86 Result Comment: Non- GFR Calc LAB L501.1115 >60 mL/min Normal EST GFR - AA 104 Result Comment: GFR Calc LAB L501.1300 10-20 RATIO Normal BUN/CRE 17.1 LAB L501.2200 8.5-10.1 mg/dL CA Normal 8.9 LAB L501.5300 136-145 mmol/L NA Normal 141 LAB L501.5600 3.5-5.1 mmol/L K Normal 3.9 LAB L501.5900 98-107 mmol/L CL Normal 105 LAB L501.6100 21.0-32.0 mmol/L Normal CO2 28.0 LAB L501.6200 5-15 Normal GAP 8 Performed By: #### L500.2500, L500.4100, L501.9910 #### [facility] [address] [place], [address] LIPID PROFILE Collected: 04/26/2017 Status: F Source: [place] 2:39 PM [facility] [place] REPOSITORY TYPE CODE TESTS RESULT OUT OF RANGE REFERENCE UNITS LAB L501.4900 200 mg/dL Normal CHOL 183 Result Comment: <200 mg/dL Desirable 200-240 mg/dL Borderline >240 mg/dL High Risk LAB L501.5000 mg/dL Normal TRIG 82 Result Comment: The drugs N-Acetylcysteine and Metamizole may falsely depress this assay. Serum Triglycerides Reference Interval Normal <150 mg/dL Borderline high 150 - 199 mg/dL High 200 - 499 mg/dL Very High > or = 500 mg/dL LAB L501.6400 mg/dL Normal HDL 52 Result Comment: The drugs N-Acetylcysteine and Metamizole may falsely depress this assay. Reference Range HDL <40 mg/dL Low HDL Cholesterol HDL >or= 60 mg/dL High HDL Cholesterol LAB L501.6500 0-130 mg/dL Normal LDL 115 LAB L501.6600 5-40 mg/dL Normal VLDL 16 Performed By: #### L500.2500, L500.4100, L501.9910 #### [facility] [address] [place], [place], [id number] PSA,TOTAL - ANNUAL Collected: 04/26/2017 Status: F Source: [place] SCREEN 2:39 PM [facility] [place] REPOSITORY TYPE CODE TESTS RESULT OUT OF REFERENCE UNITS RANGE LAB L501.9910 0.00-4.00 ng/mL High PSA,TOT 6.43 SCREEN Result Comment: This test was performed using the TPSA assay method for the Smule chemistry system. Values obtained with different assay methods cannot be used interchangably. When changing PSA assays in the course of monitoring a patient, additional sequential testing should be carried out to confirm baseline values. Performed By: #### L500.2500, L500.4100, L501.9910 #### [facility] [address] [place], [address] VITAMIN D,25 HYDROXY Collected: 04/26/2017 Status: F Source: [place] 2:39 PM [facility] [place] REPOSITORY TYPE CODE TESTS RESULT OUT OF REFERENCE UNITS RANGE LAB L506.1000 29.95-100.01 ng/mL Low Vitamin D 25.9 25-OH Result Comment: Vitamin D 25(OH) Status Range Deficiency <20 ng/mL (50nmol/L) Insuffciency 20 - 30 ng/mL (50 - 75 nmol/L) Sufficiency 30 - 100 ng/mL (75 - 250 nmol/L) Toxicity >100 ng/mL (>250 nmol/L) Performed By: #### L506.1000 #### [facility] [address] [place], [address] ALLERGIES ALLERGIES DATE TYPE / CODE NAME / CODE REACTION SEVERITY SOURCE 11/14/2017 Drug No Known Unknown [facility] Allergy/4160 Allergies/F00 [place] 4030202(SNOMED 7659778(RXNOR Repository CT) M) 07/10/2014 Drug amoxicillin/F Hives Unknown [facility] Allergy/4160 [id number]([facility] [address](SNOMED ORM) Repository CT) ENCOUNTERS ENCOUNTERS ADMIT/DISCHARGE ACCOUNT ADMITTING ENCOUNTER LOCATION SOURCE NUMBER CLASS 02/26/2018 [id number] [place] [facility] ing:LAB Repository 11/21/2017/ [id number] [facility] [place] 8 9 [facility] ing:SN6Ulhu: Repository RN041Qrx: 1 11/19/2017 [id number] Ambulatory BMSBuilding:B [place] 4 [place].[facility] Repository 11/19/2017 [id number] Amb[place] [address] [facility] Hospital ing:[facility]S Repository 11/14/2017/ [id number] Ambulatory BMSBuilding:B [place] 8 9 MS.[facility] Repository 11/14/2017 [id number] Ambulatory BMSBuilding:B [place] 2 MS.[facility] Repository 11/13/2017 [id number] Ambulatory BMSBuilding:W [place] 9 [facility] Repository 11/12/2017 [id number] Amb[place] [address] [facility] Hospital ing:RAD.FUTUR Repository E 10/05/2017 [id number] Ambulatory [place] [address] [facility] Hospital ing:CT Repository 10/03/2017 [id number] Amb[place] [address] [facility] Hospital ing:NM Repository 09/24/2017 [id number] Amb[place] [address] [facility] Hospital ing:LABSPEC Repository 07/11/2017 [id number] Amb[place] [address] [facility] Hospital ing:MFPLAB Repository 04/26/2017 [id number] Amb[place] [address] [facility] Hospital ing:MFPLAB Repository PAYERS PAYERS ENCOUNTER GUARANTOR PAYER SUBSCRIBER SOURCE 02/26/2018 GILA Rivera Primary GILA MOCTEZUMAB: [place] [id number] Insurance:[facility] [id number] [facility] y Number: [place], [place] [id number] Repository [address]Fdw: 330) Date:8858-49-78RT [phone] ([facility] [address], [place] [address]DO: 02/26/2018 Secondary NOT GIVENUNK [place] Insurance:SELF PAY [facility] Number: Effective Repository Date:2018-02-26 11/21/2017 GILA Rivera Primary GILA Rivera YOUNGB: [place] [id number] Insurance:[facility] [id number] [facility] y Number: [place], [place] [id number] Repository [address]Lmc: (330) Date:9193-48-00TT [phone] () [address] [place] [address]YI: 11/21/2017 Secondary NOT GIVENUNK [place] Insurance:SELF PAY [facility]: Effective Repository Date:2017-10-11 11/19/2017 GILA E Primary GILA E YOUNGDOB: [place] [id number] Insurance:[employer] [id number] [facility] y Number: [place], [place] [id number] Repository [address]Vhg: (330) Date:6620-26-83NI [phone] () [address] [place] [address] [place] [address]EI: 11/19/2017 Secondary NOT GIVENUNK [place] Insurance:SELF PAY [facility] Number: Effective Repository Date:2017-11-19 11/19/2017 GILA E Primary GILA E YOUNGDOB: [place] [id number] Insurance:[employer] [id number] [facility] y Number: [place] [id number] Repository [address]Ygo: (330) Date:4499-78-86DQ [phone] () [address] [place] [address]RW: 11/19/2017 Secondary NOT GIVENUNK [place] Insurance:SELF PAY Community [facility] Number: Effective Repository Date:2017-11-14 11/14/2017 GILA E Primary GILA E YOUNGDOB: [place] [id number] Insurance:[employer] [id number] [facility] y Number: [place] [id number] Repository [address]Ttn: (330) Date:5189-14-21EA [phone] () [address] [place] [address] [place] [id number]: 11/14/2017 Secondary NOT GIVENUNK [place] Insurance:SELF PAY Community [facility] Number: Effective Repository Date:2017-11-14 11/14/2017 GILA E Primary GILA E YOUNGDOB: [place] [id number] Insurance:[employer] [id number] Number: [place] [id number] Repository [address]Gol: (330) Date:8345-55-46PC [phone] () LIZETT POLLACK [address]38[address]UU: 11/14/2017 Secondary NOT GIVENUNK [place] Insurance:SELF PAY [facility] Number: Effective Repository Date:2017-11-14 11/13/2017 GILA E Primary GILA E YOUNGDOB: [place] [id number] Insurance:[employer] [id number] Number: [place] [id number] Repository [address]Lvj: (330) Date:2518-43-92OC [phone] () LIZETT POLLACK [address]YD: 11/13/2017 Secondary NOT GIVENUNK [place] Insurance:SELF PAY [facility] Number: Effective Repository Date:2017-11-13 11/12/2017 GILA E Primary GILA E YOUNGDOB: [place] [id number] Insurance:[employer] [id number] [facility] y Number: [place] [id number] Repository [address]Aip: (330) Date:1980-00-90AV [phone] () LIZETT POLLACK [address]24[address]WZ: 11/12/2017 Secondary NOT GIVENUNK [place] Insurance:SELF PAY [facility] Number: Effective Repository Date:2017-11-12 10/05/2017 GILA E Primary GILA E YOUNGDOB: [place] [id number] Insurance:[employer] [id number] Number: [place] [id number] Repository [address]Eat: (330) Date:2712-49-45SO [phone] () [place]ET[place] POLLACK [address]RC: 10/05/2017 Secondary NOT GIVENUNK [place] Insurance:SELF PAY Community [facility] Number: Effective Repository Date:2017-09-27 10/03/2017 GILA E Primary GILA DOSHIDOB: [place] [id number] Insurance:[employer] [id number] [facility] y Number: [place] [id number] Repository [address]Tij: (330) Date:9358-58-25BH [phone] () [address] [place] [address]NM: 10/03/2017 Secondary NOT GIVENUNK [place] Insurance:SELF PAY Community [facility] Number: Effective Repository Date:2017-09-27 09/24/2017 GILA E Primary GILA DOSHIDOB: [place] [id number] Insurance:[employer] [id number] [facility] y Number: [place] [id number] Repository [address]Cym: (330) Date:1064-88-26OF [phone] () [address] [place] [address]95[address]PQ: 09/24/2017 Secondary NOT GIVENUNK [place] Insurance:SELF PAY Community [facility] Number: Effective Repository Date:2017-09-24 07/11/2017 Gila Doshi10166 Primary Gila DoshiDOB: [place] Insurance:[employer] [id number] [place] y Number: Hospital [address]Dpw: (330) [id number] [address]ository [phone] () Date:9782-90-74TX [address] [place] [address] 913[address]QD: 07/11/2017 Secondary NOT GIVENUNK [place] Insurance:SELF PAY Community [facility] Number: Effective Repository Date:2017-07-11 04/26/2017 Gila Doshi10166 Primary Gila DoshiDOB: [place] Insurance:[employer] [id number] [place] y Number: Hospital [address]Ylv: (330) [id number] Repository [phone] () Date:0076-74-00FX [address], [place] [address]NW: 04/26/2017 Secondary NOT GIVENUNK [place] Insurance:SELF PAY [facility]: Effective Repository Date:2017-04-26
== END ==
PROVIDERS: Family Provider Family Medicine; PCP Family Medicine; Referring Provider Urology; Visit Provider Urology
DX: C61 Malignant neoplasm of prostate (principal)
CPT/HCPCS: 36415; 84153

== ENCOUNTER → 2018-05-21 12:14 | Outpatient (CLI) | payer BC, SELFPAY ==
[2018-05-21 13:18] LABS: PSA,Total- Diagnostic < 0.01 ng/mL (0.0-4.0)
== END ==
PROVIDERS: Family Provider Family Medicine; PCP Family Medicine; Referring Provider Urology; Visit Provider Urology
DX: C61 Malignant neoplasm of prostate (principal)
CPT/HCPCS: 36415; 84153

== ENCOUNTER → 2018-10-21 15:08 | Outpatient (CLI) | payer OTHER, SELFPAY ==
[2017-11-21 12:59] VITALS: BMI 26.7
[2018-10-21 17:55] LABS: Cholesterol 245 mg/dL (200); High Density Lipoprotein 57 mg/dL; Triglycerides 96 mg/dL; Very Low Density Lipoprotein 19 mg/dL (5-40)
== END ==
PROVIDERS: Family Provider Family Medicine; PCP Family Medicine; Visit Provider Family Medicine
DX: E78.5 Hyperlipidemia, unspecified (principal)
CPT/HCPCS: 36415; 80061

== ENCOUNTER → 2018-12-09 11:48 | Outpatient (CLI) | payer MEDICARE, SELFPAY ==
[2018-12-09 13:09] LABS: PSA,Total- Diagnostic < 0.01 ng/mL (0.0-4.0)
== END ==
PROVIDERS: Family Provider Family Medicine; PCP Family Medicine; Referring Provider Urology; Visit Provider Urology
DX: C61 Malignant neoplasm of prostate (principal)
CPT/HCPCS: 36415; 84153

== ENCOUNTER → 2019-07-24 12:32 | Outpatient (CLI) | payer MEDICARE, SELFPAY ==
[2019-07-24 13:52] LABS: PSA,Total- Diagnostic < 0.01 ng/mL (0.0-4.0)
== END ==
PROVIDERS: PCP Family Medicine; Referring Provider Urology; Visit Provider Urology
DX: C61 Malignant neoplasm of prostate (principal)
CPT/HCPCS: 36415; 84153

== ENCOUNTER → 2019-11-06 12:26 | Outpatient (CLI) | payer MEDICARE, SELFPAY ==
[2019-11-06 15:35] LABS: Cholesterol 189 mg/dL (200); High Density Lipoprotein 60 mg/dL; Triglycerides 73 mg/dL; Very Low Density Lipoprotein 15 mg/dL (5-40)
== END ==
PROVIDERS: PCP Family Medicine; Referring Provider Family Medicine; Visit Provider Family Medicine
DX: E78.5 Hyperlipidemia, unspecified (principal)
CPT/HCPCS: 36415; 80061

== ENCOUNTER → 2020-01-07 11:45 | Outpatient (CLI) | payer MEDICARE, SELFPAY ==
[2017-11-21 12:59] VITALS: BMI 26.7
[2020-01-07 12:45] LABS: PSA,Total- Diagnostic 0.01 ng/mL (0.0-4.0)
== END ==
PROVIDERS: PCP Family Medicine; Referring Provider Urology; Visit Provider Urology
DX: C61 Malignant neoplasm of prostate (principal)
CPT/HCPCS: 36415; 84153

== ENCOUNTER → 2020-07-15 10:08 | Outpatient (CLI) | payer MEDICARE, SELFPAY ==
[2017-11-21 12:59] VITALS: BMI 26.7
[2020-07-15 10:47] LABS: PSA,Total- Diagnostic 0.02 ng/mL (0.0-4.0)
== END ==
PROVIDERS: PCP Family Medicine; Referring Provider Urology; Visit Provider Urology
DX: C61 Malignant neoplasm of prostate (principal)
CPT/HCPCS: 36415; 84153

== ENCOUNTER → 2021-01-13 12:43 | Outpatient (CLI) | payer MEDICARE, SELFPAY ==
[2021-01-13 13:55] LABS: PSA,Total- Diagnostic 0.04 ng/mL (0.0-4.0)
== END ==
PROVIDERS: PCP Family Medicine; Referring Provider Urology; Visit Provider Urology
DX: C61 Malignant neoplasm of prostate (principal)
CPT/HCPCS: 36415; 84153

== ENCOUNTER → 2021-07-15 | Outpatient (CLI) | payer MEDICARE, SELFPAY ==
[2021-07-15 16:50] LABS: PSA,Total- Diagnostic 0.05 ng/mL (0.0-4.0)
== END | disposition home or self-care (01) ==
LOC: LAB 13:20
PROVIDERS: PCP Family Medicine; Referring Provider Urology; Visit Provider Urology
DX: C61 Malignant neoplasm of prostate (principal)
CPT/HCPCS: 36415; 84153

== ENCOUNTER → 2022-01-16 | Outpatient (CLI) | payer MEDICARE, SELFPAY ==
[2022-01-16 10:59] LABS: PSA,Total- Diagnostic 0.09 ng/mL (0.0-4.0)
== END | disposition home or self-care (01) ==
LOC: LAB 09:01
PROVIDERS: PCP Family Medicine; Referring Provider Urology; Visit Provider Urology
DX: C61 Malignant neoplasm of prostate (principal)
CPT/HCPCS: 36415; 84153

== ENCOUNTER → 2022-02-22 | Outpatient (CLI) | payer MEDICARE, SELFPAY ==
[2022-02-22 18:20] LABS: Anion Gap 6 (5-15); BUN 16 mg/dL (7-18); BUN/Creat Ratio 15.2 RATIO (10-20); Calcium,Total 8.9 mg/dL (8.5-10.1); Chloride 106 mmol/L (98-107); Cholesterol 203 mg/dL (200); Creatinine, Serum 1.05 mg/dL (0.70-1.30); EST Glomerular Filtration Rate 75 mL/min (>60); Est Glom Filt Rate - Afr Amer 90 mL/min (>60); Glucose 95 mg/dL (74-106); High Density Lipoprotein 61 mg/dL; PSA,Total - Annual Screen 0.04 ng/mL (0.00-4.00); Sodium Level 140 mmol/L (136-145); Triglycerides 71 mg/dL; Very Low Density Lipoprotein 14 mg/dL (5-40)
== END | disposition home or self-care (01) ==
LOC: MTLAB 15:38
PROVIDERS: PCP Family Medicine; Referring Provider Family Medicine; Visit Provider Family Medicine
DX: Z00.00 Encounter for general adult medical examination without abnormal findings (principal); E78.5 Hyperlipidemia, unspecified; Z12.5 Encounter for screening for malignant neoplasm of prostate
CPT/HCPCS: 36415; 80048; 80061; 84153; G0103

== ENCOUNTER → 2022-07-11 | Outpatient (CLI) | payer MEDICARE, SELFPAY ==
[2022-07-11 12:56] LABS: PSA,Total- Diagnostic 0.09 ng/mL (0.0-4.0)
== END | disposition home or self-care (01) ==
LOC: LAB 11:15
PROVIDERS: PCP Family Medicine; Referring Provider Urology; Visit Provider Urology
DX: C61 Malignant neoplasm of prostate (principal)
CPT/HCPCS: 36415; 84153

== ENCOUNTER 2022-09-24 11:43 | Emergency (ER) | payer MEDICARE, SELFPAY ==
[2022-09-24 11:44] VITALS: BP 153/105; PULSE 63; RESP 16; TEMP 36.9; O2SAT 99; BMI 26.6
--- NOTE | 2022-09-24 11:57 | EX.ED.GENINJ ---
HPI <MORENO Aly - Last Filed: 09/24/22 13:21> History of Present Illness Chief Complaint: Laceration Narrative Narrative: Patient presenting today with a laceration to the palmar aspect of his left thumb that he got earlier this morning while using a drill. He reports that the drill bit came off and cut his finger. Tetanus is not up-to-date. He is not on any blood thinners and denies any other injury. Tetanus Immunization: >10 years PFSH <MORENO Aly - Last Filed: 09/24/22 13:21> [facility] Medical History GERD (gastroesophageal reflux disease) Prostate cancer Home Medications famotidine 20 mg tablet 20 mg PO PRN PRN Indigestion 11/13/17 [History Last Taken Unknown] ranitidine HCl 150 mg tablet 150 mg PO DAILY stomach 11/14/17 [History Last Taken 11/20/17] ciprofloxacin HCl 500 mg tablet 500 mg PO BID #20 tabs 11/21/17 [Rx Last Taken Unknown] docusate sodium 100 mg capsule 100 mg PO BID #20 caps 11/21/17 [Rx Last Taken Unknown] Allergy/AdvReac Type Severity Reaction Status Date / Time No Known Allergies Allergy Verified 09/24/22 11:44 Family History Mother Breast cancer Father Cancer lung cancer Brother Hypertension Surgical History H/O hand surgery History of cataract surgery Social History Smoking Status: Former smoker ROS <MORENO Aly - Last Filed: 09/24/22 13:21> ROS ED Constitutional Constitutional ED: Denies chills or fever(s) Cardiovascular Cardiovascular: Denies chest pain Respiratory/Chest Respiratory/Chest: Denies cough or dyspnea Gastrointestinal Gastrointestinal: Denies abdominal pain, nausea or vomiting Musculoskeletal Musculoskeletal: Denies arthralgias or myalgias Integumentary Reports laceration Neurologic Neurologic: Denies paresthesias EXAM <MORENO Aly - Last Filed: 09/24/22 13:21> Physical Exam Const Vital Signs: 08/20/23 11:44 Temperature 98.4 F Temperature Source Temporal Pulse Rate 63 Respiratory Rate 16 Blood Pressure 153/105 H Blood Pressure Mean 121 Pulse Ox 99 Oxygen Delivery Method Room Air Positive well nourished, well developed and no apparent distress General Appearance ED: well developed HEENT Reports normocephalic and head/scalp atraumatic Mouth ED: Yes moist mucous membranes normal Eyes PERRL and EOMs intact bilaterally Neck full ROM and supple Chest Wall inspection of chest normal Resp normal respiratory effort and clear to auscultation bilaterally Cardio regular rate and regular rhythm GI soft to palpation, non-tender, non-distended and no masses Back/Spine normal ROM and normal to inspection Extremity normal to inspection and full ROM Extremity Narrative: 1 cm linear skin flap to the left first finger palmar aspect. Radial pulse 2+ and equal bilaterally, good capillary refill, sensation intact. Full flexion extension at the MCP and IP joint of the left first finger. Neuro oriented x3, CN's II-XII intact bilaterally, moves all extremities, no focal motor deficits and no sensory deficits noted Sensorium / Orientation: awake and alert Psych mental status grossly normal and thought process normal Skin no rashes or lesions noted and no wounds <Dr. Vipul Khan, - Last Filed: 09/24/22 16:58> Physical Exam Const Vital Signs: 09/24/22 11:44 Temperature 98.4 F Temperature Source Temporal Pulse Rate 63 Respiratory Rate 16 Blood Pressure 153/105 H Blood Pressure Mean 121 Pulse Ox 99 Oxygen Delivery Method Room Air PROC <MORENO Aly - Last Filed: 09/24/22 13:21> Procedures Lacerations laceration: Length: 0.39 in Depth: Skin Shape: Flap Prep: Chlorhexadine Laceration repair: Dermabond, Foreign material removed, Irrigated and Wound explored MDM <MORENO Aly - Last Filed: 09/24/22 13:21> [facility] Narrative Medical decision making narrative: Patient presenting today with a laceration to his left thumb that he got from a drill bit this morning. He has about a 1 cm skin flap. He is well-appearing and in no acute distress. He reports that he washed it right away and put antiseptic cleanser to the area and then showered. I had him soak his finger in chlorhexidine and water and then further irrigated it with saline. I was able to apply skin glue to the area to close it. Tetanus was updated here. He has been educated on signs of infection to look out for and reasons to return. He is to follow-up with his PCP and will be discharged home in stable condition. He is comfortable with plan. <Dr. Vipul Khan, DO - Last Filed: 09/24/22 16:58> [facility] MDM Narrative Medical decision making narrative: Patient presenting today with a laceration to his left thumb that he got from a drill bit this morning. He has about a 1 cm skin flap. He is well-appearing and in no acute distress. He reports that he washed it right away and put antiseptic cleanser to the area and then showered. I had him soak his finger in chlorhexidine and water and then further irrigated it with saline. I was able to apply skin glue to the area to close it. Tetanus was updated here. He has been educated on signs of infection to look out for and reasons to return. He is to follow-up with his PCP and will be discharged home in stable condition. He is comfortable with plan. I, Dr Khan, have reviewed the above progress note and course of action in the ER; agree with the above. I have personally seen and evaluated this patient, gone over history and physical, and discussed disposition and treatment plan with the patient. Discharge Plan Triage Chief Complaint: Laceration ED Midlevel Provider: Chiara Andino ED Provider: Vipul Khan Dx/Rx/DC Orders Clinical Impression: Laceration of finger Instructions: ED Laceration, Extremity: Skin Glue Prescriptions: No Action famotidine 20 MG tablet 20 mg PO PRN PRN (Reason: Indigestion) ranitidine HCl 150 mg tablet 150 mg PO DAILY ciprofloxacin HCl 500 MG tablet 500 mg PO BID Qty: 20 0RF docusate sodium 100 MG capsule 100 mg PO BID Qty: 20 0RF Primary Care Provider: Marquis Boyle Referrals: Marquis Boyle MD [Primary Care Provider] - 5-7 Days Activity Restrictions/Additional Instructions: Please return for any signs of infection such as increased redness, swelling, pus-like discharge, fever. Keep area covered if you are going to be working or outside. Disposition Disposition: Home, Self Care Discharge Date/Time: 09/24/22 13:08
[2022-09-24] MEDS: Diphth,Pertuss(Acell),Tet Vac 0.5 ML Vial IM (12:21)
== END 2022-09-24 13:08 | disposition home or self-care (01) ==
PROVIDERS: Emergency Provider Emergency Medicine; PCP Family Medicine; Visit Provider Emergency Medicine
DX: S61.012A Laceration without foreign body of left thumb without damage to nail, initial encounter (principal); Z87.891 Personal history of nicotine dependence; K21.9 Gastro-esophageal reflux disease without esophagitis; Z85.46 Personal history of malignant neoplasm of prostate; Z79.899 Other long term (current) drug therapy; Z23 Encounter for immunization; W22.8XXA Striking against or struck by other objects, initial encounter; Y93.89 Activity, other specified
CPT/HCPCS: 90471; 90715; 99282

== ENCOUNTER → 2023-01-15 | Outpatient (CLI) | payer MEDICARE, SELFPAY ==
[2023-01-15 13:17] LABS: PSA,Total- Diagnostic 0.14 ng/mL (0.0-4.0)
== END | disposition home or self-care (01) ==
LOC: LAB 12:14
PROVIDERS: PCP Family Medicine; Referring Provider Urology; Visit Provider Urology
DX: C61 Malignant neoplasm of prostate (principal)
CPT/HCPCS: 36415; 84153

== ENCOUNTER → 2023-07-16 | Outpatient (CLI) | payer MEDICARE, SELFPAY ==
[2023-07-16 15:01] LABS: PSA,Total- Diagnostic 0.13 ng/mL (0.0-4.0)
== END | disposition home or self-care (01) ==
LOC: LAB 13:41
PROVIDERS: PCP Family Medicine; Referring Provider Nurse Practitioner; Visit Provider Nurse Practitioner
DX: R97.21 Rising PSA following treatment for malignant neoplasm of prostate (principal)
CPT/HCPCS: 36415; 84153

== ENCOUNTER → 2024-01-18 | Outpatient (CLI) | payer MEDICARE, SELFPAY ==
[2024-01-18 14:24] LABS: PSA,Total- Diagnostic 0.15 ng/mL (0.0-4.0)
== END | disposition home or self-care (01) ==
LOC: LAB 13:35
PROVIDERS: PCP Family Medicine; Referring Provider Urology; Visit Provider Urology
DX: C61 Malignant neoplasm of prostate (principal)
CPT/HCPCS: 36415; 84153

== ENCOUNTER → 2024-07-17 | Outpatient (CLI) | payer MEDICARE, SELFPAY ==
[2024-07-17 10:04] LABS: PSA,Total- Diagnostic 0.16 ng/mL (0.00-4.00)
== END | disposition home or self-care (01) ==
LOC: LAB 08:49
PROVIDERS: PCP Family Medicine; Referring Provider Urology; Visit Provider Urology
DX: C61 Malignant neoplasm of prostate (principal)
CPT/HCPCS: 36415; 84153

== ENCOUNTER → 2024-11-25 | Outpatient (CLI) | payer MEDICARE, SELFPAY ==
[2024-11-25 14:39] LABS: Anion Gap 9 (5-15); BUN 14 mg/dL (4-19); BUN/Creat Ratio 14.1 RATIO (10-20); Calcium,Total 9.4 mg/dL (7.6-11.0); Carbon Dioxide 26.2 mmol/L (21.0-32.0); Chloride 106 mmol/L (98-108); Cholesterol 237 mg/dL (<=200); Glucose 102 mg/dL (70-99); Low Density Lipoprotein Calc. 161 mg/dL; Potassium 4.7 mmol/L (3.3-5.1); Triglycerides 124 mg/dL; Very Low Density Lipoprotein 25 mg/dL (5-40); cholesterol:hdl ratio screen 4.38
== END | disposition home or self-care (01) ==
LOC: LABSPEC 13:01 → MTLAB 18:45
PROVIDERS: PCP Family Medicine; Referring Provider Family Medicine; Visit Provider Family Medicine
DX: E78.5 Hyperlipidemia, unspecified (principal)
CPT/HCPCS: 36415; 80048; 80061

== ENCOUNTER → 2025-01-13 | Outpatient (CLI) | payer MEDICARE, SELFPAY ==
[2025-01-13 13:21] LABS: PSA,Total- Diagnostic 0.18 ng/mL (0.00-4.00)
== END | disposition home or self-care (01) ==
LOC: LAB 12:13
PROVIDERS: PCP Family Medicine; Referring Provider Urology; Visit Provider Urology
DX: C61 Malignant neoplasm of prostate (principal)
CPT/HCPCS: 36415; 84153